=== PATIENT | male | born 1930 | race African-American/Black ===

== ENCOUNTER 2020-01-28 12:52 | Emergency (ER) | payer MEDICARE, OTHER ==
[~2020-01-28] VITALS: Ht 180.3 cm; Wt 112.0 kg
[~2020-01-28 12:52] MED LIST: GLYBURID-METFO1 EAC3 PO; Z VERAPAMIL HCL PO; Z.0.ENALAPRIL MALEA2 PO; Z.0.NORVASC5 MG PO; Z.0.SIMVASTATIN80 MG PO; Z.0.ULTRAM50 MG PO; [UNRECOGNIZED DRUG - OTHER] PO
--- OUTSIDE RECORDS SUMMARY | 2020-01-28 14:07 | XMS REPORT | Continuity of Care Document ---
Author Author [facility] t Organization [facility] Address 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 Depression, major, recurrent Depression, major, recurrent Disease Active 2016-05-27 00:00:00 [facility] Diabetes mellitus, type 2 Diabetes mellitus, type 2 Disease Ac tive 2015-03-10 00:00:00 Overview: Overview: ICD-10 C [facility] BP (high blood pressure) BP (high blood pressure) Disease Acti ve 2014-03-12 00:00:00 [facility] HLD (hyperlipidemia) HLD (hyperlipidemia) Disease Active 00:00:00 [facility] Allergies, Adverse Reactions, Alerts Allergy Name Allergy Type Status Severity Reaction(s) Onset Date Inacti ve Date Treating Clinician Comments Source Nsaids (Non-Steroidal Anti-Inflammatory Drug) Propensity to adverse reactions Active Swelling 2016-10-25 00:00:00 [facility] Social History Social Habit Start Date Stop Date Quantity Comments Source Sex Assigned At [facility] Smoking Status Start Date Stop Date Source [facility] Ordered Medication Name Filled Medication Name Start Date Stop Da te Current Medication? Ordering Clinician Indication Dosage Frequency Signature (SIG) Comments Components Source AZITHROmycin (ZITHROMAX) 250 MG tablet 2019-04-20 6 00:00:00 2019-05-19 23:59:00 No 250mg QD Take 1 tablet (250 mg total) by mouth daily for 5 days Take first 2 tablets together, then 1 every day until finished.. [facility] tamsulosin (FLOMAX) 0.4 mg Cp24 24 hr capsule 2016-10-28 00:00:0 0 Yes .8mg QD Take 2 capsules (0.8 mg total) by mouth nightly. [facility] HYDROcodone-acetaminophen (NORCO 5-325) 5-325 mg per tablet 2016-10-25 12:01:16 Yes 1{tbl} Take 1 tab let by mouth every 6 (six) hours as needed for Pain. [facility] FLUoxetine (PROZAC) 20 MG tablet 2016-10-25 12:01:16 Yes 20mg QD Take 20 mg by mouth daily. [facility] carvedilol (COREG) 25 MG tablet 2016-10-25 12:01:16 Yes 25mg Take 25 mg by mouth 2 (two) times daily with breakfast and dinner. [facility] gabapentin (NEURONTIN) 100 MG capsule 2016-10-25 12:01:16 Yes 200mg Q.5D Take 200 mg by mouth 2 (two) times daily. [facility] ondansetron (ZOFRAN-ODT) 4 MG disintegrating tablet 11-08 00:00:00 Yes 4mg Take 1 tablet (4 mg total) by mouth every 4 (four) hours as needed for Nausea. [facility] amLODIPine (NORVASC) 10 MG tablet 2014-11-01 07:45:35 Yes 10mg QD Take 10 mg by mouth daily. [facility] lisinopril (PRINIVIL,ZESTRIL) 10 MG tablet 2014-11-01 07:45:35 Yes 10mg QD Take 10 mg by mouth daily. [facility] pravastatin (PRAVACHOL) 40 MG tablet 2014-03-11 07:43:18 Ye s 40mg QD Take 40 mg by mouth daily. [facility] glipiZIDE-metFORMIN (METAGLIP) 5-500 mg per tablet 2014-02 07:43:17 Yes 1{tbl} Take 1 tablet by mouth 2 (two) times peter ly before meals. [facility] verapamil (CALAN-SR) 180 MG CR tablet 2014-03-11 07:43:17 Y es 180mg QD Take 180 mg by mouth nightly. [facility] Vital Signs Vital Name Observation Time Observation Value Comments Source Systolic blood pressure 2019-05-14 12:54:00 156 mm[Hg] [facility] Diastolic blood pressure 2019-05-14 12:54:00 88 mm[Hg] [facility] Heart rate 2019-05-14 12:54:00 59 /min [facility] Body temperature 2019-05-14 12:54:00 36.67 Noreen [facility] Respiratory rate 2019-05-14 12:54:00 20 /min [facility] Oxygen saturation in Arterial blood by Pulse oximetry 2018-06 12:54:00 100 [facility] height 2019-05-14 09:39:00 172.7 cm [facility] Body weight Measured 2019-05-14 09:39:00 108.863 kg [facility] BMI 2019-05-14 09:39:00 36.49 kg/m2 [facility] Procedures Procedure Date / Time Performed Performing Clinician Sour e REPORT OF PROCEDURE - ENDOSCOPY SCAN 2019-05-23 11:01:07 Pro vider, Default Scanning [facility] URINALYSIS W/ MICROSCOPIC 2019-05-14 13:04:00 Silvano Faustin [facility] ED ECG INTERPRETATION 2019-05-14 12:53:16 Silvano Faustin [facility] BASIC METABOLIC PANEL (7) 2019-05-14 11:22:00 Ramin Silvano Dain [facility] TROPONIN I 2019-05-14 11:22:00 Ramin Silvano K. [facility] CBC W/PLT COUNT & AUTO DIFFERENTIAL 2019-05-14 11:22:00 Josue Faustin Dain [facility] XR CHEST PA OR AP 1 VIEW IN DEPT. 2019-05-14 10:37:00 Catarino Faustin [facility] CT BRAIN WITHOUT IV CONTRAST 2019-05-14 10:19:00 [facility] ECG 12-LEAD 2019-05-14 09:45:03 Unknown, Hl7 Doctor [facility] Results Test Description Test Time Test Comments Results Result Comments Source ECG 12 lead 2019-05-15 11:07:50 Interface, E xternal Ris In - 05/15/2019 11:07 AM CSTVentricular Rate 44 BPMAtrial Rate 44 BPMP-R Interval 288 msQRS Duration 76 msQ-T Interval 450 msQTC Calculation(Bazett) 384 msP Dora 109 degreesR Dora - 13 degreesT Dora 16 degreesMarked sinus bradycardia with 1st degree A-V blockVoltage criteria for left ventricular hypertrophyBorderline criteria for Inferior infarct , age undeterminedAbnormal ECGWhen compared with ECG of 11-MAR-2014 08:04,No significant changesConfirmed by Rashawn BELL, LEODAN ([id number]) on 05/15/2019 11:07:47 AM [facility] Urinalysis w/Microscopic 2019-05-14 13:35:00 Test Item Color, UA (test code = 5778-6) Yellow Clarity, UA (test code = 5767-9) Hazy Specific [place], UA (test code = 5811-5) 1.022 1.001-1.035 pH, UA (test code = 5803-2) 5.5 5.0-8.0 Protein, UA (test code = 61273-8) 20 mg/dL Negative A Glucose, UA (test code = 365) Negative Negative Ketones, UA (test code = 2514-8) Negative Negative Bilirubin, UA (test code = 61795-9) Negative Negative Blood, UA (test code = 72669-8) Negative Negative Nitrite, UA (test code = 5802-4) Negative Negative Leukocytes, UA (test code = 5799-2) Negative Negative Urobilinogen, UA (test code = 03021-2) 2.0 mg/dL 0.2-1 H RBC, UA (test code = 09829-7) 1 /HPF WBC, UA (test code = 5821-4) 0 /HPF Mucus (test code = 8247-9) Rare Squam Epithel, UA (test code = 34013-1) 1 /HPF Casts (test code = 9842-6) 1 /LPF Crystals, Urine (test code = 48940-2) Rare Specimen Source (test code = 2795) Urine, Voided Lab Interpretation (test code = 11668-4) [facility] [id number] 13:35:00* Test Item Value Reference Range Interpretation Comments COLOR (BEAKER) (test code = 470) Yellow CLARITY (BEAKER) (test code = 469) Hazy SPECIFIC GRAVITY UA (BEAKER) (test code = 468) 1.022 1.001-1 .035 PH UA (BEAKER) (test code = 467) 5.5 5.0-8.0 PROTEIN UA (BEAKER) (test code = 464) 20 mg/dL Negative A GLUCOSE UA (BEAKER) (test code = 365) Negative Negative KETONES UA (BEAKER) (test code = 371) Negative Negative BILIRUBIN UA (BEAKER) (test code = 462) Negative Negative BLOOD UA (BEAKER) (test code = 461) Negative Negative NITRITE UA (BEAKER) (test code = 465) Negative Negative LEUKOCYTE ESTERASE UA (BEAKER) (test code = 466) Negative Negat amaya UROBILINOGEN UA (BEAKER) (test code = 463) 2.0 mg/dL 0.2-1.0 H RBC UA (BEAKER) (test code = 519) 1 /HPF WBC UA (BEAKER) (test code = 520) 0 /HPF MUCUS (BEAKER) (test code = 1574) Rare SQUAMOUS EPITHELIAL (BEAKER) (test code = 516) 1 /HPF CASTS (BEAKER) (test code = 1579) 1 /LPF CRYSTALS, URINE (BEAKER) (test code = 1521) Rare SOURCE(BEAKER) (test code = 2795) Urine, Voided ECG/EKG [id number] 12:53:16Silvano Faustin MD 05/16/2019 8:22 AMECG/EKG InterpretationDate/Time: 05/14/2019 1:12 PMPerformed by: Silvano Faustin MDAuthorized by: Silvano Faustin MD The ECG was interpreted by ED physician. The ECG is interpreted as sinus rhythm. Heart rate is 63 BPM.Patient tolerance: Patient tolerated the procedure well with no immediate complicationsComments: SINUS RHYTHM ON MONITOR [facility] Troponin [id number] 11:50:00* Test Item Value Reference Range Interpretation Comments Troponin I (test code = 53493-8) <0.01 0-0.03 ALEX (test code = ALEX) Troponin I (TnI) levels must be interpreted in the context of the presenting symptoms and the clinical findings. Elevated TnI levels indicate myocardial damage, but are not specific for ischemic heart disease. Elevated TnI levels are seen in patients with other cardiac conditions (including myocarditis and congestive heart failure), and slight TnI elevations occur in patients with other conditions, including sepsis, renal failure, acidosis, acute neurological disease, and persistent tachyarrhythmia. Lab Interpretation (test code = 63149-2) Normal [facility] [id number] 11:50:00* Test Item Value Reference Range Interpretation Comments TROPONIN I (BEAKER) (test code = 397) < ng/mL 0.00-0.03 Troponin I (TnI) levels must be interpreted in the context of the presenting sym ptoms and the clinical findings. Elevated TnI levels indicate myocardial damage, but are not specific for ischemic heart disease. Elevated TnI levels are seen i n patients with other cardiac conditions (including myocarditis and congestive h eart failure), and slight TnI elevations occur in patients with other conditions , including sepsis, renal failure, acidosis, acute neurological disease, and per sistent tachyarrhythmia.Basic Metabolic [id number] 11:47:00* Test Item Value Reference Range Interpretation Comments Sodium (test code = 2951-2) 139 meq/L 136-145 Potassium (test code = 2823-3) 4.1 meq/L 3.5-5.1 Specimen slightly hemolyzed Chloride (test code = 2075-0) 105 meq/L 98-107 CO2 (test code = 8-9) 26 meq/L 22-29 BUN (test code = 3094-0) 21 mg/dL 7-21 Creatinine (test code = 2160-0) 1.19 mg/dL 0.57-1.25 Specimen slightly hemolyzed Glucose (test code = 2345-7) 96 mg/dL 70-105 Calcium (test code = 76948-1) 9.4 mg/dL 8.4-10.2 EGFR (test code = 73560-1) 70 mL/min/1.73 sq m ESTIMATED GFR IS NOT ACCURATE CREATININE CLEARANCE IN PREDICTING GLOMERULAR FILTRATION RATE. ESTIMATED GFR IS NOT APPLICABLE FOR DIALYSIS PATIENTS. [facility] [id number] 11:47:00* Test Item Value Reference Range Interpretation Comments SODIUM (BEAKER) (test code = 381) 139 meq/L 136-145 POTASSIUM (BEAKER) (test code = 379) 4.1 meq/L 3.5-5.1 Specimen slightly hemolyzed CHLORIDE (BEAKER) (test code = 382) 105 meq/L 98-107 CO2 (BEAKER) (test code = 355) 26 meq/L 22-29 BLOOD UREA NITROGEN (BEAKER) (test code = 354) 21 mg/dL 7-21 CREATININE (BEAKER) (test code = 358) 1.19 mg/dL 0.57-1.25 Specimen slightly hemolyzed GLUCOSE RANDOM (BEAKER) (test code = 652) 96 mg/dL 70-105 CALCIUM (BEAKER) (test code = 697) 9.4 mg/dL 8.4-10.2 EGFR (BEAKER) (test code = 1092) 70 mL/min/1.73 sq m ESTIMATED GFR IS NOT ACCURATE CREATININE CLEARANCE IN PREDICTING GLOMERULAR FILTRATION RATE. ESTIMATED GFR IS NOT APPLICABLE FOR DIALYSIS PATIENTS. CBC with platelet count + automated [id number] 11:31:00* Test Item Value Reference Range Interpretation Comments WBC (test code = 6690-2) 7.0 3.5- 10.5 K/L RBC (test code = 789-8) 4.44 4.63- 6.08 M/L L MCHC (test code = 786-4) 32.6 32.3- 36.5 GM/DL L Hematocrit (test code = 4544-3) 40.8 % 40.1-51 MCV (test code = 787-2) 91.9 fL 79-92.2 MCH (test code = 785-6) 30.0 pg 25.7-32.2 RDW (test code = 788-0) 14.2 % 11.6-14.4 Platelets (test code = 777-3) 209 150- 450 K/CU MM MPV (test code = 55632-7) 9.1 fL 9.4-12.4 L nRBC (test code = 413) 0 0- 0 /100 WBC % Neutros (test code = 429) 51 % % Lymphs (test code = 430) 37 % % Monos (test code = 431) 9 % % Eos (test code = 432) 2 % % Baso (test code = 437) 1 % # Neutros (test code = 670) 3.57 1.78- 5.38 K/L # Lymphs (test code = 414) 2.61 1.32- 3.57 K/L # Monos (test code = 415) 0.64 0.30- 0.82 K/L # Eos (test code = 416) 0.15 0.04- 0.54 K/L # Baso (test code = 417) 0.04 0.01- 0.08 K/L Immature Granulocytes-Relative (test code = 2801) 0 % 0-1 Lab Interpretation (test code = 95384-5) Abnormal [facility] W/PLT COUNT & AUTO [id number] 11:31:00* Test Item Value Reference Range Interpretation Comments WHITE BLOOD CELL COUNT (BEAKER) (test code = 775) 7.0 K/ L 3.5- 10.5 RED BLOOD CELL COUNT (BEAKER) (test code = 761) 4.44 M/ L 4.63-6 .08 L HEMOGLOBIN (BEAKER) (test code = 410) 13.3 GM/DL 13.7-17.5 L HEMATOCRIT (BEAKER) (test code = 411) 40.8 % 40.1-51.0 MEAN CORPUSCULAR VOLUME (BEAKER) (test code = 753) 91.9 fL 79. 0-92.2 MEAN CORPUSCULAR HEMOGLOBIN (BEAKER) (test code = 751) 30.0 pg 25.7-32.2 MEAN CORPUSCULAR HEMOGLOBIN CONC (BEAKER) (test code = 752) 32.6 GM/DL 32.3-36.5 RED CELL DISTRIBUTION WIDTH (BEAKER) (test code = 412) 14.2 % 11.6-14.4 PLATELET COUNT (BEAKER) (test code = 756) 209 K/CU MM 150-450 MEAN PLATELET VOLUME (BEAKER) (test code = 754) 9.1 fL 9.4-12 .4 L NUCLEATED RED BLOOD CELLS (BEAKER) (test code = 413) 0 /100 WBC 0 -0 NEUTROPHILS RELATIVE PERCENT (BEAKER) (test code = 429) 51 % LYMPHOCYTES RELATIVE PERCENT (BEAKER) (test code = 430) 37 % MONOCYTES RELATIVE PERCENT (BEAKER) (test code = 431) 9 % EOSINOPHILS RELATIVE PERCENT (BEAKER) (test code = 432) 2 % BASOPHILS RELATIVE PERCENT (BEAKER) (test code = 437) 1 % NEUTROPHILS ABSOLUTE COUNT (BEAKER) (test code = 670) 3.57 K/ L 1.78-5.38 LYMPHOCYTES ABSOLUTE COUNT (BEAKER) (test code = 414) 2.61 K/ L 1.32-3.57 MONOCYTES ABSOLUTE COUNT (BEAKER) (test code = 415) 0.64 K/ L 0. 30-0.82 EOSINOPHILS ABSOLUTE COUNT (BEAKER) (test code = 416) 0.15 K/ L 0.04-0.54 BASOPHILS ABSOLUTE COUNT (BEAKER) (test code = 417) 0.04 K/ L 0. 01-0.08 IMMATURE GRANULOCYTES-RELATIVE PERCENT (BEAKER) (test code = 2801) 0 % 0-1 RAD, CHEST, PA OR AP, 1 [id number] 10:44:00Reason for exam:->DIZZINESSReason for exam:->GENERALIZED WEAKNESS, NOT ASSOCIATED WITH EXTREMITIESFINAL REPORT INDICATION: DIZZINESSGENERALIZED WEAKNESS, NOT ASSOCIATED WITH EXTREMITIES COMPARISON: March 11, 2014 TECHNIQUE: Single frontal view of the chest. FINDINGS: Lungs and pleura: Clear lungs. No effusion.Heart and mediastinum: Normal heart size. Unremarkable mediastinal contours.Osseous structures: No acute abnormality.Other: None. IMPRESSION: No acute intratho racic abnormality. Signed: Iris Hutchison Verified Date/Time: 019 10:44:06 Reading Location: [facility] Radiology Reading Room Electronica lly signed by: IRIS HUTCHISON MD on 05/14/2019 10:44 AM XR chest PA or AP 1 view in [id number] 10:44:00Interface, External Ris In - 05/14/2019 10:46 AM CSTFINAL REPORT INDICATION: DIZZINESSGENERALIZED WEAKNESS, NOT ASSOCIATED WITH EXTREMITIES COMPARISON: March 11, 2014 TECHNIQUE: Single frontal view of the chest. FINDINGS: Lungs and pleura: Clear lungs. No effusion.Heart and mediastinum: Normal heart size. Unremarkable mediastinal contours.Osseous structures: No acute abnormality.Other: None. IMPRESSION: No acute intrathoracic abnormality. Signed: Iris Hutchison Verified Date/Time: 05/14/2019 10:44:06 Reading Location: [facility] Radiology Reading Room [facility]AST 2019-05-14 10:32:00Reason for exam:->DIZZINESSReason for exam:->GENERALIZED WEAKNESS, NOT ASSOCIATED WITH EXTREMITIESWhat is the patient's sedation requirement?->No SedationFINAL REPORT CT Head without contrast CLINICAL HISTORY: DIZZINESSGENERALIZED WEAKNESS, NOT ASSOCIATED WITH EXTREMITIESWEAKNESS TECHNIQUE: Contiguous axial CT images through the head without contrast. This exam was performed according to the departmental dose optimization program which includes automated exposure control, adjustment of the mA and/or kV according to the patient size, and/or use of an iterative reconstruction technique. COMPARISON: 03/11/2014 FINDINGS: There is no CT evidence of acute infarct or intracranial hemorrhage. There is periventricular and subcortical white matter hypodensity which is nonspecific but compatible with chronic microvascular ischemic change. There are atherosclerotic calcifications of the intracranial circulation. There is generalized parenchymal volume loss without hydrocephalus, midline shift, or apparent mass effect. There are no extra-axial fluid collections. The skull is intact. There are air- fluid levels in the visualized maxillary sinuses. IMPRESSION: No CT evidence of acute infarct, hemorrhage, or hydrocephalus. Acute maxillary sinusitis. Signed: Kelvin Sandhu Verified Date/Time: 05/14/2019 10:32:43 Reading Location: [address] Neuro Reading Room brain without IV [id number] 10:32:00Interface, External Ris In - 05/14/2019 10:[address] Head without contrast CLINICAL HISTORY: DIZZINESSGENERALIZED WEAKNESS, NOT ASSOCIATED WITH EXTREMITIESWEAKNESS TECHNIQUE: Contiguous axial CT images through the head without contrast. This exam was performed according to the departmental dose optimization program which includes automated exposure control, adjustment of the mA and/or kV according to the patient size, and/or use of an iterative reconstruction technique. COMPARISON: 03/11/2014 FINDINGS: There is no CT evidence of acute infarct or intracranial hemorrhage. There is periventricular and subcortical white matter hypodensity which is nonspecific but compatible with chronic microvascular ischemic change. There are atherosclerotic calcifications of the intracranial circulation. There is generalized parenchymal volume loss without hydrocephalus, midline shift, or apparent mass effect. There are no extra-axial fluid collections. The skull is intact. There are air-fluid levels in the visualized maxillary sinuses. IMPRESSION: No CT evidence of acute infarct, hemorrhage, or hydrocephalus. Acute maxillary sinusitis. Signed: Kelvin Sandhu Verified Date/Time: 05/14/2019 10:32:43 Reading Location: [address] Neuro Reading Room [facility]BL[facility] [id number] 12:00:00* Test Item Value Reference Range Interpretation Comments CULTURE (BEAKER) (test code = 1095) No growth in 5 days BLOOD [id number] 10:57:00* Test Item Value Reference Range Interpretation Comments CULTURE (BEAKER) (test code = 1095) A From Aerobic Bottle Only Micrococcus species GRAM STAIN RESULT (BEAKER) (test code = 1123) From aer obic bottle only: gram positive cocci in clusters POCT-GLUCOSE [id number] 11:43:00* Test Item Value Reference Range Interpretation Comments POC-GLUCOSE METER (BEAKER) (test code = 1538) 205 mg/dL 70-110 H TESTED AT [facility] [address] [facility] [address] URINE [id number] 10:17:00* Test Item Value Reference Range Interpretation Comments CULTURE (BEAKER) (test code = 1095) ESCHERICHIA COLI A >100,000 col/mL Escherichia coli Amikacin (test code = 1) S Ampicillin + Sulbactam (test code = 6) R Aztreonam (test code = 32) S Cefepime (test code = 51) S Cefoxitin (test code = 68) S Ceftazidime (test code = 27) S Ceftriaxone (test code = 52) S Ertapenem (test code = 38) S Gentamicin (test code = 18) S Levofloxacin (test code = 22) S Meropenem (test code = 34) S Nitrofurantoin (test code = 23) S Piperacillin + Tazobactam (test code = 29) S Tetracycline (test code = 2) S Tobramycin (test code = 25) S Trimethoprim + Sulfamethoxazole (test code = 47) R CBC W/PLT COUNT & AUTO [id number] 06:07:00* Test Item Value Reference Range Interpretation Comments WHITE BLOOD CELL COUNT (BEAKER) (test code = 775) 7.3 K/ L 4.0- 10.0 RED BLOOD CELL COUNT (BEAKER) (test code = 761) 3.67 M/ L 4.20-5 .80 L HEMOGLOBIN (BEAKER) (test code = 410) 11.3 GM/DL 13.0-16.8 L HEMATOCRIT (BEAKER) (test code = 411) 33.2 % 40.0-50.0 L MEAN CORPUSCULAR VOLUME (BEAKER) (test code = 753) 90.3 fL 82. 0-98.0 MEAN CORPUSCULAR HEMOGLOBIN (BEAKER) (test code = 751) 30.8 pg 27.0-33.0 MEAN CORPUSCULAR HEMOGLOBIN CONC (BEAKER) (test code = 752) 34.2 GM/DL 32.0-36.0 RED CELL DISTRIBUTION WIDTH (BEAKER) (test code = 412) 13.1 % 10.3-14.2 PLATELET COUNT (BEAKER) (test code = 756) 243 K/CU MM 150-430 MEAN PLATELET VOLUME (BEAKER) (test code = 754) 6.3 fL 6.5-10 .5 L NUCLEATED RED BLOOD CELLS (BEAKER) (test code = 413) 0 /100 WBC 0 -0 NEUTROPHILS RELATIVE PERCENT (BEAKER) (test code = 429) 55 % LYMPHOCYTES RELATIVE PERCENT (BEAKER) (test code = 430) 34 % MONOCYTES RELATIVE PERCENT (BEAKER) (test code = 431) 10 % EOSINOPHILS RELATIVE PERCENT (BEAKER) (test code = 432) 1 % BASOPHILS RELATIVE PERCENT (BEAKER) (test code = 437) 0 % NEUTROPHILS ABSOLUTE COUNT (BEAKER) (test code = 670) 4.04 K/ L 1.80-8.00 LYMPHOCYTES ABSOLUTE COUNT (BEAKER) (test code = 414) 2.47 K/ L 1.48-4.50 MONOCYTES ABSOLUTE COUNT (BEAKER) (test code = 415) 0.73 K/ L 0. 00-1.30 EOSINOPHILS ABSOLUTE COUNT (BEAKER) (test code = 416) 0.05 K/ L 0.00-0.50 BASOPHILS ABSOLUTE COUNT (BEAKER) (test code = 417) 0.03 K/ L 0. 00-0.20 0.00POCT-GLUCOSE [id number] 22:05:00* Test Item Value Reference Range Interpretation Comments POC-GLUCOSE METER (BEAKER) (test code = 1538) 195 mg/dL 70-110 H TESTED AT [address] [address] POCT-GLUCOSE [id number] 17:12:00* Test Item Value Reference Range Interpretation Comments POC-GLUCOSE METER (BEAKER) (test code = 1538) 225 mg/dL 70-110 H TESTED AT [address] [address] POCT-GLUCOSE [id number] 14:34:00* Test Item Value Reference Range Interpretation Comments POC-GLUCOSE METER (BEAKER) (test code = 1538) 204 mg/dL 70-110 H TESTED AT [address] [address] POCT-GLUCOSE [id number] 10:55:00* Test Item Value Reference Range Interpretation Comments POC-GLUCOSE METER (BEAKER) (test code = 1538) 175 mg/dL 70-110 H TESTED AT [place] [id number] [facility] [address] POCT-GLUCOSE [id number] 07:50:00* Test Item Value Reference Range Interpretation Comments POC-GLUCOSE METER (BEAKER) (test code = 1538) 172 mg/dL 70-110 H TESTED AT [place] [id number] [facility] [address] CBC W/PLT COUNT & AUTO [id number] 07:44:00* Test Item Value Reference Range Interpretation Comments WHITE BLOOD CELL COUNT (BEAKER) (test code = 775) 10.1 K/ L 4.0- 10.0 H RED BLOOD CELL COUNT (BEAKER) (test code = 761) 3.88 M/ L 4.20-5 .80 L HEMOGLOBIN (BEAKER) (test code = 410) 11.8 GM/DL 13.0-16.8 L HEMATOCRIT (BEAKER) (test code = 411) 35.9 % 40.0-50.0 L MEAN CORPUSCULAR VOLUME (BEAKER) (test code = 753) 92.6 fL 82. 0-98.0 MEAN CORPUSCULAR HEMOGLOBIN (BEAKER) (test code = 751) 30.5 pg 27.0-33.0 MEAN CORPUSCULAR HEMOGLOBIN CONC (BEAKER) (test code = 752) 32.9 GM/DL 32.0-36.0 RED CELL DISTRIBUTION WIDTH (BEAKER) (test code = 412) 12.7 % 10.3-14.2 PLATELET COUNT (BEAKER) (test code = 756) 212 K/CU MM 150-430 MEAN PLATELET VOLUME (BEAKER) (test code = 754) 6.7 fL 6.5-10 .5 NUCLEATED RED BLOOD CELLS (BEAKER) (test code = 413) 0 /100 WBC 0 -0 NEUTROPHILS RELATIVE PERCENT (BEAKER) (test code = 429) 73 % LYMPHOCYTES RELATIVE PERCENT (BEAKER) (test code = 430) 18 % MONOCYTES RELATIVE PERCENT (BEAKER) (test code = 431) 9 % EOSINOPHILS RELATIVE PERCENT (BEAKER) (test code = 432) 0 % BASOPHILS RELATIVE PERCENT (BEAKER) (test code = 437) 0 % NEUTROPHILS ABSOLUTE COUNT (BEAKER) (test code = 670) 7.34 K/ L 1.80-8.00 LYMPHOCYTES ABSOLUTE COUNT (BEAKER) (test code = 414) 1.79 K/ L 1.48-4.50 MONOCYTES ABSOLUTE COUNT (BEAKER) (test code = 415) 0.95 K/ L 0. 00-1.30 EOSINOPHILS ABSOLUTE COUNT (BEAKER) (test code = 416) 0.01 K/ L 0.00-0.50 BASOPHILS ABSOLUTE COUNT (BEAKER) (test code = 417) 0.02 K/ L 0. 00-0.20 0.00BASIC METABOLIC [id number] 07:37:00* Test Item Value Reference Range Interpretation Comments SODIUM (BEAKER) (test code = 381) 135 meq/L 136-145 L POTASSIUM (BEAKER) (test code = 379) 3.7 meq/L 3.5-5.1 Specimen slightly hemolyzed CHLORIDE (BEAKER) (test code = 382) 105 meq/L 98-107 CO2 (BEAKER) (test code = 355) 21 meq/L 22-29 L BLOOD UREA NITROGEN (BEAKER) (test code = 354) 16 mg/dL 7-21 CREATININE (BEAKER) (test code = 358) 1.24 mg/dL 0.57-1.25 Specimen slightly hemolyzed GLUCOSE RANDOM (BEAKER) (test code = 652) 161 mg/dL 70-105 H CALCIUM (BEAKER) (test code = 697) 8.5 mg/dL 8.4-10.2 EGFR (BEAKER) (test code = 1092) 67 mL/min/1.73 sq m ESTIMATED GFR IS NOT ACCURATE CREATININE CLEARANCE IN PREDICTING GLOMERULAR FILTRATION RATE. ESTIMATED GFR IS NOT APPLICABLE FOR DIALYSIS PATIENTS. POCT-GLUCOSE [id number] 17:29:00* Test Item Value Reference Range Interpretation Comments POC-GLUCOSE METER (BEAKER) (test code = 1538) 206 mg/dL 70-110 H TESTED AT [facility] [address] [facility] [address] POCT-GLUCOSE [id number] 13:56:00* Test Item Value Reference Range Interpretation Comments POC-GLUCOSE METER (BEAKER) (test code = 1538) 232 mg/dL 70-110 H TESTED AT [facility] [address] [facility] [address] HEMOGLOBIN [id number] 09:02:00* Test Item Value Reference Range Interpretation Comments HEMOGLOBIN A1C (BEAKER) (test code = 368) 8.7 % 4.3-6.1 H POCT-GLUCOSE [id number] 08:24:00* Test Item Value Reference Range Interpretation Comments POC-GLUCOSE METER (BEAKER) (test code = 1538) 146 mg/dL 70-110 H TESTED AT [facility] [address] [facility] [address] [id number] 07:21:00* Test Item Value Reference Range Interpretation Comments PHOSPHORUS (BEAKER) (test code = 604) 3.1 mg/dL 2.3-4.7 [id number] 07:21:00* Test Item Value Reference Range Interpretation Comments MAGNESIUM (BEAKER) (test code = 627) 1.6 mg/dL 1.6-2.6 BASIC METABOLIC [id number] 07:21:00* Test Item Value Reference Range Interpretation Comments SODIUM (BEAKER) (test code = 381) 138 meq/L 136-145 POTASSIUM (BEAKER) (test code = 379) 3.5 meq/L 3.5-5.1 CHLORIDE (BEAKER) (test code = 382) 103 meq/L 98-107 CO2 (BEAKER) (test code = 355) 23 meq/L 22-29 BLOOD UREA NITROGEN (BEAKER) (test code = 354) 14 mg/dL 7-21 CREATININE (BEAKER) (test code = 358) 1.17 mg/dL 0.57-1.25 GLUCOSE RANDOM (BEAKER) (test code = 652) 150 mg/dL 70-105 H CALCIUM (BEAKER) (test code = 697) 8.8 mg/dL 8.4-10.2 EGFR (BEAKER) (test code = 1092) 72 mL/min/1.73 sq m ESTIMATED GFR IS NOT ACCURATE CREATININE CLEARANCE IN PREDICTING GLOMERULAR FILTRATION RATE. ESTIMATED GFR IS NOT APPLICABLE FOR DIALYSIS PATIENTS. LIPID [id number] 07:21:00* Test Item Value Reference Range Interpretation Comments TRIGLYCERIDES (BEAKER) (test code = 540) 72 mg/dL CHOLESTEROL (BEAKER) (test code = 631) 120 mg/dL HDL CHOLESTEROL (BEAKER) (test code = 976) 49 mg/dL LDL CHOLESTEROL CALCULATED (BEAKER) (test code = 633) 57 mg/dL Triglyceride Reference Range: Low Risk <150 Borderline 150-199 High Risk 200-499 Very High Risk >=500Cholesterol Reference Range: Low Risk <200 Borderline 200-239 High Risk >240HDL Cholesterol Reference Range: Low Risk >=60 High Risk <40LDL Cholesterol Reference Range: Optimal <100 Near Optimal 100-129 Borderline 130-159 High 160-189 Very High >=190 CBC W/PLT COUNT & AUTO [id number] 07:18:00* Test Item Value Reference Range Interpretation Comments WHITE BLOOD CELL COUNT (BEAKER) (test code = 775) 15.7 K/ L 4.0- 10.0 H RED BLOOD CELL COUNT (BEAKER) (test code = 761) 4.06 M/ L 4.20-5 .80 L HEMOGLOBIN (BEAKER) (test code = 410) 12.2 GM/DL 13.0-16.8 L HEMATOCRIT (BEAKER) (test code = 411) 36.4 % 40.0-50.0 L MEAN CORPUSCULAR VOLUME (BEAKER) (test code = 753) 89.6 fL 82. 0-98.0 MEAN CORPUSCULAR HEMOGLOBIN (BEAKER) (test code = 751) 29.9 pg 27.0-33.0 MEAN CORPUSCULAR HEMOGLOBIN CONC (BEAKER) (test code = 752) 33.4 GM/DL 32.0-36.0 RED CELL DISTRIBUTION WIDTH (BEAKER) (test code = 412) 13.4 % 10.3-14.2 PLATELET COUNT (BEAKER) (test code = 756) 232 K/CU MM 150-430 MEAN PLATELET VOLUME (BEAKER) (test code = 754) 6.5 fL 6.5-10 .5 NUCLEATED RED BLOOD CELLS (BEAKER) (test code = 413) 0 /100 WBC 0 -0 NEUTROPHILS RELATIVE PERCENT (BEAKER) (test code = 429) 78 % LYMPHOCYTES RELATIVE PERCENT (BEAKER) (test code = 430) 13 % MONOCYTES RELATIVE PERCENT (BEAKER) (test code = 431) 9 % EOSINOPHILS RELATIVE PERCENT (BEAKER) (test code = 432) 0 % BASOPHILS RELATIVE PERCENT (BEAKER) (test code = 437) 0 % NEUTROPHILS ABSOLUTE COUNT (BEAKER) (test code = 670) 12.20 K/ L 1.80-8.00 H LYMPHOCYTES ABSOLUTE COUNT (BEAKER) (test code = 414) 1.98 K/ L 1.48-4.50 MONOCYTES ABSOLUTE COUNT (BEAKER) (test code = 415) 1.42 K/ L 0. 00-1.30 H EOSINOPHILS ABSOLUTE COUNT (BEAKER) (test code = 416) 0.01 K/ L 0.00-0.50 BASOPHILS ABSOLUTE COUNT (BEAKER) (test code = 417) 0.01 K/ L 0. 00-0.20 [id number] 06:38:00* Test Item Value Reference Range Interpretation Comments PROTIME (BEAKER) (test code = 759) 16.3 seconds 11.7-14.7 H INR (BEAKER) (test code = 370) 1.3 <=5.9 PARTIAL THROMBOPLASTIN TIME (BEAKER) (test code = 760) 37.4 seconds 22.5-36.0 H RECOMMENDED COUMADIN/WARFARIN INR THERAPY RANGESSTANDARD DOSE: 2.0 - 3.0 Inclu sima: PROPHYLAXIS for venous thrombosis, systemic embolization; TREATMENT for reed ous thrombosis and/or pulmonary embolus.HIGH RISK: Target INR is 2.5-3.5 for pat ients with mechanical heart valves.URINALYSIS W/ [id number] 22:31:00 * Test Item Value Reference Range Interpretation Comments COLOR (BEAKER) (test code = 470) Yellow CLARITY (BEAKER) (test code = 469) Hazy SPECIFIC GRAVITY UA (BEAKER) (test code = 468) 1.023 1.001-1 .035 PH UA (BEAKER) (test code = 467) 5.5 5.0-8.0 PROTEIN UA (BEAKER) (test code = 464) 50 mg/dL Negative A GLUCOSE UA (BEAKER) (test code = 365) Negative Negative KETONES UA (BEAKER) (test code = 371) 10 mg/dL Negative A BILIRUBIN UA (BEAKER) (test code = 462) Negative Negative BLOOD UA (BEAKER) (test code = 461) Small Negative A NITRITE UA (BEAKER) (test code = 465) Positive Negative A LEUKOCYTE ESTERASE UA (BEAKER) (test code = 466) Large Negat amaya A UROBILINOGEN UA (BEAKER) (test code = 463) 0.2 mg/dL 0.2-1.0 RBC UA (BEAKER) (test code = 519) 2 /HPF WBC UA (BEAKER) (test code = 520) 87 /HPF BACTERIA (BEAKER) (test code = 517) Rare MUCUS (BEAKER) (test code = 1574) Rare SOURCE(BEAKER) (test code = 2795) Urine, Voided [id number] 16:00:00* Test Item Value Reference Range Interpretation Comments LIPASE (BEAKER) (test code = 749) 15 U/L 8-78 HEPATIC FUNCTION [id number] 16:00:00* Test Item Value Reference Range Interpretation Comments TOTAL PROTEIN (BEAKER) (test code = 770) 8.2 gm/dL 6.0-8.3 ALBUMIN (BEAKER) (test code = 1145) 3.9 g/dL 3.5-5.0 BILIRUBIN TOTAL (BEAKER) (test code = 377) 0.7 mg/dL 0.2-1.2 BILIRUBIN DIRECT (BEAKER) (test code = 706) 0.3 mg/dL 0.1-0.5 ALKALINE PHOSPHATASE (BEAKER) (test code = 346) 72 U/L 40-150 AST (SGOT) (BEAKER) (test code = 353) 13 U/L 5-34 ALT (SGPT) (BEAKER) (test code = 347) 7 U/L 6-55 [id number] 16:00:00* Test Item Value Reference Range Interpretation Comments AMYLASE (BEAKER) (test code = 349) 48 U/L 25-125 BASIC METABOLIC [id number] 14:04:00* Test Item Value Reference Range Interpretation Comments SODIUM (BEAKER) (test code = 381) 136 meq/L 136-145 POTASSIUM (BEAKER) (test code = 379) 3.6 meq/L 3.5-5.1 CHLORIDE (BEAKER) (test code = 382) 102 meq/L 98-107 CO2 (BEAKER) (test code = 355) 23 meq/L 22-29 BLOOD UREA NITROGEN (BEAKER) (test code = 354) 11 mg/dL 7-21 CREATININE (BEAKER) (test code = 358) 1.13 mg/dL 0.57-1.25 GLUCOSE RANDOM (BEAKER) (test code = 652) 171 mg/dL 70-105 H CALCIUM (BEAKER) (test code = 697) 9.4 mg/dL 8.4-10.2 EGFR (BEAKER) (test code = 1092) 75 mL/min/1.73 sq m ESTIMATED GFR IS NOT ACCURATE CREATININE CLEARANCE IN PREDICTING GLOMERULAR FILTRATION RATE. ESTIMATED GFR IS NOT APPLICABLE FOR DIALYSIS PATIENTS. CBC W/PLT COUNT & AUTO [id number] 13:55:00* Test Item Value Reference Range Interpretation Comments WHITE BLOOD CELL COUNT (BEAKER) (test code = 775) 15.1 K/ L 4.0- 10.0 H RED BLOOD CELL COUNT (BEAKER) (test code = 761) 4.41 M/ L 4.20-5 .80 HEMOGLOBIN (BEAKER) (test code = 410) 13.2 GM/DL 13.0-16.8 HEMATOCRIT (BEAKER) (test code = 411) 39.9 % 40.0-50.0 L MEAN CORPUSCULAR VOLUME (BEAKER) (test code = 753) 90.5 fL 82. 0-98.0 MEAN CORPUSCULAR HEMOGLOBIN (BEAKER) (test code = 751) 29.9 pg 27.0-33.0 MEAN CORPUSCULAR HEMOGLOBIN CONC (BEAKER) (test code = 752) 33.0 GM/DL 32.0-36.0 RED CELL DISTRIBUTION WIDTH (BEAKER) (test code = 412) 13.9 % 10.3-14.2 PLATELET COUNT (BEAKER) (test code = 756) 242 K/CU MM 150-430 MEAN PLATELET VOLUME (BEAKER) (test code = 754) 6.2 fL 6.5-10 .5 L NUCLEATED RED BLOOD CELLS (BEAKER) (test code = 413) 0 /100 WBC 0 -0 NEUTROPHILS RELATIVE PERCENT (BEAKER) (test code = 429) 79 % LYMPHOCYTES RELATIVE PERCENT (BEAKER) (test code = 430) 12 % MONOCYTES RELATIVE PERCENT (BEAKER) (test code = 431) 8 % EOSINOPHILS RELATIVE PERCENT (BEAKER) (test code = 432) 0 % BASOPHILS RELATIVE PERCENT (BEAKER) (test code = 437) 1 % NEUTROPHILS ABSOLUTE COUNT (BEAKER) (test code = 670) 11.90 K/ L 1.80-8.00 H LYMPHOCYTES ABSOLUTE COUNT (BEAKER) (test code = 414) 1.82 K/ L 1.48-4.50 MONOCYTES ABSOLUTE COUNT (BEAKER) (test code = 415) 1.21 K/ L 0. 00-1.30 EOSINOPHILS ABSOLUTE COUNT (BEAKER) (test code = 416) 0.01 K/ L 0.00-0.50 BASOPHILS ABSOLUTE COUNT (BEAKER) (test code = 417) 0.18 K/ L 0. 00-0.20 0.00
--- OUTSIDE RECORDS SUMMARY | 2020-01-28 14:07 | XMS REPORT | Clinical Summary ---
Author Author [employer] [facility] [employer] [facility] Address Unknown Phone Unavailable Care Team Providers Care Property And Equipment Clerk Name Role Phone Delfino Tapia PCP Unavailable Allergies Comments Active Allergy Reactions Severity Noted Date Nsaids (Non-Steroidal Swelling 10/25/2016 Anti-Inflammatory Drug) Medications End Date Status Medication Sig Dispensed Refills Start Date Active glipiZIDE-metFORMIN Take 1 tablet 0 (METAGLIP) 5-500 mg per by mouth 2 tablet (two) times daily before meals. Active verapamil (CALAN-SR) 180 Take 180 mg 0 MG CR tablet by mouth nightly. Active pravastatin (PRAVACHOL) Take 40 mg by 0 40 MG tablet mouth daily. Active amLODIPine (NORVASC) 10 Take 10 mg by 0 MG tablet mouth daily. Active lisinopril Take 10 mg by 0 (PRINIVIL,ZESTRIL) 10 MG mouth daily. tablet Active ondansetron (ZOFRAN-ODT) Take 1 tablet 20 tablet 0 4 MG disintegrating (4 mg total) 5 tablet by mouth every 4 (four) hours as needed for Nausea. Active HYDROcodone-acetaminophen Take 1 tablet 0 (NORCO 5-325) 5-325 mg by mouth per tablet every 6 (six) hours as needed for Pain. Active FLUoxetine (PROZAC) 20 MG Take 20 mg by 0 tablet mouth daily. Active carvedilol (COREG) 25 MG Take 25 mg by 0 tablet mouth 2 (two) times daily with breakfast and dinner. Active gabapentin (NEURONTIN) Take 200 mg 0 100 MG capsule by mouth 2 (two) times daily. Active tamsulosin (FLOMAX) 0.4 Take 2 60 capsule 1 mg Cp24 24 hr capsule capsules (0.8 7 mg total) by mouth nightly. 05/19/2019 AZITHROmycin (ZITHROMAX) Take 1 tablet 6 tablet 0 250 MG tablet (250 mg 9 total) by mouth daily for 5 days Take first 2 tablets together, then 1 every day until finished.. Active Problems Problem Noted Date Acute pyelonephritis 10/25/2016 Depression, major, recurrent 05/27/2016 Diabetes mellitus, type 2 03/10/2015 Overview: Overview: ICD-10 BP (high blood pressure) 03/12/2014 HLD (hyperlipidemia) 03/12/2014 Encounters Care Team Description Date Type Specialty Silvano Faustin MD Dizziness (Primary Dx); Essential hypertension; Weakness; Acute non-recurrent sinusitis, unspecified location; Hypertension, uncontrolled 05/14/2019 Emergency Emergency Medicine 05/14/2019 Orders Only General Internal Me dicine after 01/27/2019 Social History Date Tobacco Use Types Packs/Day Years Used Never Smoker Alcohol Use Drinks/Week oz/Week Comments No Sex Assigned at Date Recorded Not on file Industry Job Start Date Occupation Not on file Not on file Not on file Travel End Travel History Travel Start No recent travel history available. Last Filed Vital Signs Time Taken Vital Sign Reading 05/14/2019 12:54 PM MUSEUM [facility]RARIAN Blood Pressure 156/88 05/14/2019 12:54 PM MUSEUM LIBRARIAN Pulse 59 05/14/2019 12:54 PM [employer]USEUM [employer]RARIAN Temperature 36.7 C (98 F) 05/14/2019 12:54 PM MUSEUM [employer]RARIAN Respiratory Rate 20 05/14/2019 12:54 PM MUSEUM [employer]RARIAN Oxygen Saturation 100% - Inhaled Oxygen - Concentration 05/14/2019 9:39 AM MUSEUM LIBRARIAN Weight 108.9 kg (240 lb) 05/14/2019 9:39 AM MUSEUM LIBRARIAN Height 172.7 cm (5' 8") 05/14/2019 9:39 AM MUSEUM [employer]RARIAN Body Mass Index 36.49 Plan of Treatment Not on file Procedures Comments Procedure Name Priority Date/Time Associated Diag nosis REPORT OF PROCEDURE - 05/23/2019 ENDOSCOPY SCAN 11:01 AM MUSEUM [facility]RARIAN URINALYSIS W/ MICROSCOPIC STAT 05/14/2019 1:04 PM MUSEUM LIBRARIAN ED ECG INTERPRETATION Routine 05/14/2019 12:53 PM MUSEUM LIBRARIAN CBC W/PLT COUNT & AUTO STAT 05/14/2019 DIFFERENTIAL 11:22 AM MUSEUM LIBRARIAN TROPONIN I STAT 05/14/2019 11:22 AM MUSEUM LIBRARIAN CBC W/PLT COUNT & AUTO STAT 05/14/2019 DIFFERENTIAL 11:22 AM MUSEUM LIBRARIAN BASIC METABOLIC PANEL (7) STAT 05/14/2019 11:22 AM MUSEUM LIBRARIAN XR CHEST PA OR AP 1 VIEW STAT 05/14/2019 IN DEPT. 10:[address] BRAIN WITHOUT IV STAT 05/14/2019 CONTRAST 10:19 AM MUSEUM LIBRARIAN ECG 12-LEAD Routine 05/14/2019 9:45 AM MUSEUM LIBRARIAN Procedure Note - Interface, External Ris In - 05/14/2019 11:00 AM MUSEUM LIBRARIAN Ventricula r Rate 44 BPM Atrial Rate 44 BPM P-R Interval 288 ms QRS Duration 76 ms Q-T Interval 450 ms QTC Calculatio n(Bazett) 384 ms P [place] 109 degrees R [place] -13 degrees T [place] 16 degrees Marked sinus bradycardi a with 1st degree A-V block Voltage criteria for left ventricula r hypertroph y Abnormal ECG When compared with ECG of 4 08:04, Criteria for Inferior infarct are no longer Present ECG 12-LEAD STAT 05/14/2019 9:45 AM MUSEUM LIBRARIAN after 01/27/2019 Results * EKG-SCANNED (05/23/2019 11:01 AM MUSEUM LIBRARIAN) Narrative Performed At This result has an attachment that is n ot available. * Urinalysis w/Microscopic (05/14/2019 1:04 PM MUSEUM LIBRARIAN) Color, UA Yellow [facility] Clarity, UA Hazy [facility] Specific Gunter, UA 1.022 1.001 - 1.035 [facility] pH, UA 5.5 5.0 - 8.0 [facility] Protein, UA 20 mg/dL (A) Negative [facility] Glucose, UA Negative Negative [facility] Ketones, UA Negative Negative [facility] Bilirubin, UA Negative Negative [facility] Blood, UA Negative Negative [facility] Nitrite, UA Negative Negative [facility] Leukocytes, UA Negative Negative [facility] Urobilinogen, UA 2.0 (H) 0.2 - 1.0 mg/dL [facility] RBC, UA 1 /HPF [facility] WBC, UA 0 /HPF [facility] Mucus Rare [facility] Squam Epithel, UA 1 /HPF [facility] Casts 1 /LPF [facility] Crystals, Urine Rare [facility] Specimen Source Urine, Voided [facility] Specimen Urine Performing Organization Address City/State/Zipcode Ph one Number [place] [address] [facility] * ECG/EKG Interpretation (05/14/2019 12:53 PM MUSEUM LIBRARIAN) Narrative Performed At Silvano Faustin MD 98:22 AM ECG/EKG Interpretation Date/Time: 05/14/2019 1:12 PM Performed by: Silvano Faustin MD Authorized by: Silvano Faustin MD The ECG was interpreted by ED physician . The ECG is interpreted as sinus rhythm. Heart rate is 63 BPM. Patient tolerance: Patient tolerated th e procedure well with no immediate complications Comments: SINUS RHYTHM ON MONITOR * CBC with platelet count + automated diff (05/14/2019 11:22 AM MUSEUM LIBRARIAN) WBC 7.0 3.5 - 10.5 K/L [facility] RBC 4.44 (L) 4.63 - 6.08 M/L [facility] Hemoglobin 13.3 (L) 13.7 - 17.5 GM/DL [facility] Hematocrit 40.8 40.1 - 51.0 % [facility] MCV 91.9 79.0 - 92.2 fL [facility] MCH 30.0 25.7 - 32.2 pg [facility] MCHC 32.6 32.3 - 36.5 GM/DL [facility] RDW 14.2 11.6 - 14.4 % [facility] Platelets 209 150 - 450 K/CU MM [facility] MPV 9.1 (L) 9.4 - 12.4 fL [facility] nRBC 0 0 - 0 /100 WBC [facility] % Neutros 51 % [facility] % Lymphs 37 % [facility] % Monos 9 % [facility] % Eos 2 % [facility] % Baso 1 % [facility] # Neutros 3.57 1.78 - 5.38 K/L [facility] # Lymphs 2.61 1.32 - 3.57 K/L [facility] # Monos 0.64 0.30 - 0.82 K/L [facility] # Eos 0.15 0.04 - 0.54 K/L [facility] # Baso 0.04 0.01 - 0.08 K/L [facility] Immature 0 0 - 1 % Granulocytes-Relative [facility] Specimen Blood Performing Organization Address City/State/Zipcode Ph one Number [place] [phone] [place], [place] [address] [facility] * Troponin I (05/14/2019 11:22 AM MUSEUM LIBRARIAN) Troponin I <0.01 0.00 - 0.03 ng/mL [facility] Specimen Blood Narrative Performed At Troponin I (TnI) levels must be interpreted in the co ntext of the presenting [facility] symptoms and the clinical findings. Elevated TnI leve ls indicate myocardial [facility] damage, but are not specific for ischem ic heart disease. Elevated TnI levels are seen in patients with other cardiac con ditions (including myocarditis and congestive heart failure), and slight T nI elevations occur in patients with other conditions, including sepsis, dolores al failure, acidosis, acute neurological disease, and persistent tachyarrhythmia . Performing Organization Address City/State/[facility] Ph one Number [address] [facility] * Basic Metabolic Panel (05/14/2019 11:22 AM MUSEUM LIBRARIAN) Sodium 139 136 - 145 meq/L [facility] Potassium 4.1Comment: Specimen slightly 3.5 - 5.1 meq/L [facility] Chloride 105 98 - 107 meq/L [facility] CO2 26 22 - 29 meq/L [facility] BUN 21 7 - 21 mg/dL [facility] Creatinine 1.19Comment: Specimen slightly 0.57 - 1.25 mg/ dL [facility] Glucose 96 70 - 105 mg/dL [facility] Calcium 9.4 8.4 - 10.2 mg/dL [facility] EGFR 70Comment: ESTIMATED GFR IS mL/min/1.[address] [facility] NOT ACCURATE CREATININE [facility] CLEARANCE IN PREDICTING GLOMERULAR FILTRATION RATE. ESTIMATED GFR IS NOT APPLICABLE FOR DIALYSIS PATIENTS. Specimen Blood Performing Organization Address City/State/Zipcode Ph one Number [facility] [address] [place] [address] [facility] * XR chest PA or AP 1 view in dept (05/14/2019 10:37 AM MUSEUM LIBRARIAN) Specimen Narrative Performed At FINAL REPORT [facility] INDICATION: DIZZINESS GENERALIZED WEAKNESS, NOT ASSOCIATED WI TH EXTREMITIES COMPARISON: March 11, 2014 TECHNIQUE: Single frontal view of the c hest. FINDINGS: Lungs and pleura: Clear lungs. No effus ion. Heart and mediastinum: Normal heart siz e. Unremarkable mediastinal contours. Osseous structures: No acute abnormalit y. Other: None. IMPRESSION: No acute intrathoracic abnormality. Signed: Payal Hutchison MD Report Verified Date/Time: 10:44:06 Reading Location: [facility] Reading Room Procedure Note Interface, External Ris In - 05/14/2019 10:46 AM MUSEUM LIBRARIAN FINAL REPORT INDICATION: DIZZINESS GENERALIZED WEAKNESS, NOT ASSOCIATED WITH EXTREMITIES COMPARISON: March 11, 2014 TECHNIQUE: Single frontal view of the chest. FINDINGS: Lungs and pleura: Clear lungs. No effusion. Heart and mediastinum: Normal heart size. Unremarkable mediastinal contours. Osseous structures: No acute abnormality. Other: None. IMPRESSION: No acute intrathoracic abnormality. Signed: Payal Hutchison MD Report Verified Date/Time: 05/14/2019 10:44:06 [facility] Reading Room Performing Organization Address City/[facility] Ph one Number [facility] * CT brain without IV contrast (05/14/2019 10:19 AM MUSEUM LIBRARIAN) Specimen Narrative Performed At FINAL REPORT [facility] CT Head without contrast CLINICAL HISTORY: DIZZINESS GENERALIZED WEAKNESS, NOT ASSOCIATED WI TH EXTREMITIES WEAKNESS TECHNIQUE: Contiguous axial CT images t hrough the head without contrast. This exam was performed accor ding to the departmental dose optimization program which includes aut omated exposure control, adjustment of the mA and/or kV accordin g to the patient size, and/or use of an iterative reconstruction tech nique. COMPARISON: 03/11/2014 FINDINGS: There is no CT evidence of acute infarc t or intracranial hemorrhage. There is periventricular and subcortica l white matter hypodensity which is nonspecific but compatible wit h chronic microvascular ischemic change. There are atherosclero tic calcifications of the intracranial circulation. There is gene ralized parenchymal volume loss without hydrocephalus, midline saul ft, or apparent mass effect. There are no extra-axial fluid collecti ons. The skull is intact. There are air-fluid levels in the visua lized maxillary sinuses. IMPRESSION: No CT evidence of acute infarct, hemorr roscoe, or hydrocephalus. Acute maxillary sinusitis. Signed: Kelvin Sandhu MD Report Verified Date/Time: 9 10:32:43 Reading Location: [address] Neuro Re ading Room Procedure Note Interface, External Ris In - 05/14/2019 10:34 AM MUSEUM LIBRARIAN FINAL REPORT CT Head without contrast CLINICAL HISTORY: DIZZINESS GENERALIZED WEAKNESS, NOT ASSOCIATED WITH EXTREMITIES WEAKNESS TECHNIQUE: Contiguous axial CT images through the [...] hydrocephalus. Acute maxillary sinusitis. Signed: Kelvin Sandhu MD Report Verified Date/Time: 05/14/2019 10:32:43 Reading Location: [address] Neuro Reading Room Performing Organization Address City/State/Zipcode Ph one Number [facility] * ECG 12 lead (05/14/2019 9:45 AM MUSEUM LIBRARIAN) Specimen Narrative Performed At Ventricular Rate 44 BPM [facility] Atrial Rate 44 BPM P-R Interval 288 ms QRS Duration 76 ms Q-T Interval 450 ms QTC Calculation(Bazett) 384 ms P [place] 109 degrees R [place] -13 degrees T [place] 16 degrees Marked sinus bradycardia with 1st degre e A-V block Voltage criteria for left ventricular h ypertrophy Borderline criteria for Inferior infarc t , age undetermined Abnormal ECG When compared with ECG of 11-MAR-2014 0 8:04, No significant changes Confirmed by Rashawn BELL BASANT ([id number]) on 05/15/2019 11:07:47 AM Procedure Note Interface, External Ris In - 05/15/2019 11:07 AM MUSEUM LIBRARIAN Ventricular Rate 44 BPM Atrial Rate 44 BPM P-R Interval 288 ms QRS Duration 76 ms Q-T Interval 450 ms QTC Calculation(Bazett) 384 ms P [place] 109 degrees R [place] -13 degrees T [place] 16 degrees Marked sinus bradycardia with 1st degree A-V block Voltage criteria for left ventricular hypertrophy Borderline criteria for Inferior infarct , age undetermined Abnormal ECG When compared with ECG of 11-MAR-2014 08:04, No significant changes Confirmed by Rashawn BELL, LEODAN ([id number]) on 05/15/2019 11:07:47 AM Performing Organization Address City/State/Zipcode Ph one Number [facility] after 01/27/2019 Insurance Payer Benefit Subscriber ID Type Phone Address Plan / Group [employer] TEX[employer] xxxxxxxxx [facility] Cont[facility] [id number] Advance Directives For more information, please contact: [facility] [address] [place] [address] Date Inactivated Comments Code Status Date Activated 10/28/2016 4:29 PM Full Code 10/26/2016 5:44 AM This code status was determined by: Patient
--- NOTE | 2020-01-28 14:08 | Emergency Department Note ---
History of Present Illnes History of Present Illness Chief Complaint: Genitourinary History of Present Illness This is a 89 year old male Chief Complaint Comment buring with urination onset yesterday. no fever. aaox4. ambulatory . 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 Any updates have been documented here. Past Medical History Recent Fever: No Clinical Suspicion of Infectio: No New/Unexplained Change in Ment: No Past Medical History: Diabetes, Hyperlipedemia Other Medical History: HYPERCHOLESTEREMIA, AND "EYE PROBLEMS" Social History Smoking Cessation: Unknown if ever smoked Counseling Performed: No Alcohol Use: None Any Illegal Drug Use: No Other Last Tetanus: UNKNOWN Any Pre-Existing Lines (PICC,: No Review of Systems Review of Systems Constitutional: Reports no symptoms EENTM: Reports no symptoms Cardiovascular: Reports no symptoms Respiratory: Reports no symptoms Gastrointestinal: Reports no symptoms Genitourinary: Reports dysuria Musculoskeletal: Reports no symptoms Integumentary: Reports no symptoms Neurological: Reports no symptoms Psychological: Reports no symptoms Endocrine: Reports no symptoms Hematological/Lymphatic: Reports no symptoms Review of other systems: All other systems negative Physical Exam Related Data Allergies: Coded Allergies: No Known Allergies (Unverified , 10/27/10) Triage Vital Signs Vital Signs Date Time Temp Pulse Resp B/P (MAP) Pulse Ox O2 Delivery O2 Flow Rate FiO2 01/28/20 13:17 98.8 78 16 116/65 98 Room Air Vital signs reviewed: Yes Physical Exam CONSTITUTIONAL Constitutional: Present well-developed, Present well-nourished HENT HENT: Present normocephalic, Present atraumatic, Present oropharynx clear/moist, Present nose normal HENT L/R: Present left ext ear normal, Present right ext ear normal EYES Eyes: Reports PERRL, Reports conjunctivae normal NECK Neck: Present ROM normal PULMONARY Pulmonary: Present effort normal, Present breath sounds normal CARDIOVASCULAR Cardiovascular: Present regular rhythm, Present heart sounds normal, Present capillary refill normal, Present normal rate GASTROINTESTINAL Abdominal: Present soft, Present nontender, Present bowel sounds normal GENITOURINARY Genitourinary: Present exam deferred SKIN Skin: Present warm, Present dry MUSCULOSKELETAL Musculoskeletal: Present ROM normal NEUROLOGICAL Neurological: Present alert, Present oriented x 3, Present no gross motor or sensory deficits PSYCHOLOGICAL Psychological: Present mood/affect normal, Present judgement normal Assessment & Plan Medical Decision Making MDM 89-year-old male presenting for burning with urination. Exam shows an overall well-appearing patient in no acute distress, vital signs stable, within acceptable limits. W/u shows UTI. he was given 1g Rocephin in the ED with will rx keflex. Doubt emergent process at this time. I discussed results patient as well as expected disease time course and management. They will follow up with their primary care provider or return to the emergency department for new or worsening symptoms. Patient's appropriate for discharge. Reassessment Reassessment time: 14:09 Reassessment Well appearing, NAD Assessment & Plan Final Impression: (1) UTI (urinary tract infection) Depart Disposition: HOME, SELF-CARE Last Vital Signs Date Time Temp Pulse Resp B/P (MAP) Pulse Ox O2 Delivery O2 Flow Rate FiO2 01/28/20 13:17 98.8 78 16 116/65 98 Room Air Home Meds Active Scripts Cephalexin Monohydrate (KEFLEX) 500 Mg Capsule, 500 MG PO TID for uti for 7 Days, #21 TAB 0 Refills Prov:SUE AYALA MD 01/28/20 Reported Medications Amlodipine Besylate (Norvasc) 5 Mg Tablet, 5 MG PO DAILY 10/27/10 Enalapril Maleate (Enalapril Maleate) 20 Mg Tablet, 20 MG PO DAILY 10/27/10 Verapamil Hcl (Verapamil Hcl) 180 Mg Cap24h.pel, 180 MG PO BID 10/27/10 Simvastatin (Simvastatin) 80 Mg Tablet, 80 MG PO QHS 10/27/10 Glyburide, Micro/Metformin Hcl (Glyburid-Metformin 5-500 Mg Tb) 1 Each Tablet, 1 EACH PO BID 10/27/10 Tramadol Hcl (Ultram) 50 Mg Tablet, 50 MG PO PRN 10/27/10 Tizanidine Hcl (Zanaflex) 2 Mg Capsule, 2 MG PO TID 10/27/10 SUE AYALA MD Jan 28, 2020 14:08
--- NOTE | 2020-01-28 14:15 | NUR ---
PATIENT TO ROOM 2
[2020-01-28 14:17] LABS: BASOPHILS % 0.2 % (0.0-1.0); EOSINOPHILS # (AUTO) 0.1 (0.0-0.4); EOSINOPHILS % 0.4 % (0.0-6.0); HEMATOCRIT 37.2 % (38.2-49.6); HEMOGLOBIN 11.9 g/dL (14.0-18.0); LYMPHOCYTES # (AUTO) 2.4 (1.0-3.2); MEAN CORPUSCULAR VOLUME 90.5 fL (81-99); MONOCYTES # (AUTO) 1.3 (0.2-0.8); NEUTROPHILS # (AUTO) 10.2 (2.1-6.9); PLATELET COUNT 172 x10e3/uL (140-360); RED BLOOD COUNT 4.11 x10e6/uL (4.3-5.7); RED CELL DISTRIBUTION WIDTH 14.5 % (11.7-14.4)
[2020-01-28 14:22] LABS: CLARITY,URINE CLOUDY (CLEAR); COLOR,URINE AMBER (YELLOW); LEUKOCYTE ESTERASE ,URINE SMALL (NEGATIVE); NITRITE,URINE NEGATIVE (NEGATIVE); PROTEIN,URINE DIPSTICK >=300 (NEGATIVE)
[2020-01-28 14:23] LABS: BILIRUBIN,URINE MODERATE (NEGATIVE); KETONES,URINE TRACE (NEGATIVE); URINE UROBILINOGEN 1 mg/dL (0.2 - 1)
[2020-01-28 14:36] LABS: BACTERIA,URINE MANY /HPF; EPITHELIAL CELLS,URINE RARE /LPF
[2020-01-28 14:38] LABS: ALBUMIN 3.4 g/dL (3.5-5.0); ALBUMIN/GLOBULIN RATIO 0.9 (0.8-2.0); ANION GAP 13.7 mmol/L (8-16); CALCIUM 9.1 mg/dL (8.4-10.2); CREATININE, SERUM 1.67 mg/dL (0.72-1.25); POTASSIUM 3.7 mmol/L (3.5-5.1)
[2020-01-28] MEDS ORDERED: KEFLEX500 MG PO (15:23)
[2020-01-28] MEDS ORDERED: CEFTRIAXONE SOD 1 GM/NS 50 ML 50 ML IV ONE (15:30)
== END 2020-01-28 16:06 | disposition home or self-care (01) ==
LOC: ER 14:05
DX: N39.0 Urinary tract infection, site not specified (principal); R30.0 Dysuria; E11.9 Type 2 diabetes mellitus without complications; E78.5 Hyperlipidemia, unspecified
CPT/HCPCS: 36415; 80053; 81001; 85025; 87086; 87186; 99284; J0696

== ENCOUNTER 2020-06-01 10:34 | Emergency (ER) | payer MEDICARE ==
[~2020-06-01] VITALS: Ht 180.3 cm; Wt 112.0 kg
[~2020-06-01 10:34] MED LIST changes: +KEFLEX500 MG PO
== END 2020-06-01 13:59 | disposition home or self-care (01) ==
LOC: ER 10:44
DX: S32.010A Wedge compression fracture of first lumbar vertebra, initial encounter for closed fracture (principal); M54.2 Cervicalgia; V44.5XXA Car driver injured in collision with heavy transport vehicle or bus in traffic accident, initial encounter; Y92.488 Other paved roadways as the place of occurrence of the external cause; E11.9 Type 2 diabetes mellitus without complications; E78.5 Hyperlipidemia, unspecified
CPT/HCPCS: 70450; 72125; 72131; 99283

== ENCOUNTER 2020-11-03 07:15 | Inpatient (IN) | payer MEDICARE ==
[~2020-11-03] VITALS: Ht 175.3 cm; Wt 99.8 kg
[2020-11-03 07:59] LABS: BASOPHILS % 0.4 % (0.0-1.0); EOSINOPHILS # (AUTO) 0.3 (0.0-0.4); EOSINOPHILS % 4.1 % (0.0-6.0); HEMATOCRIT 37.6 % (38.2-49.6); HEMOGLOBIN 12.1 g/dL (14.0-18.0); LYMPHOCYTES # (AUTO) 2.5 (1.0-3.2); LYMPHOCYTES % 34.8 % (18.0-39.1); MEAN CORPUSCULAR HEMOGLOBIN 29.2 pg (28-32); MEAN CORPUSCULAR HGB CONC 32.2 g/dL (31-35); MEAN CORPUSCULAR VOLUME 90.6 fL (81-99); MONOCYTES # (AUTO) 0.4 (0.2-0.8); MONOCYTES % 6.3 % (4.4-11.3); NEUTROPHILS # (AUTO) 3.8 (2.1-6.9); NEUTROPHILS % 54.3 % (38.7-80.0); PLATELET COUNT 232 x10e3/uL (140-360); RED BLOOD COUNT 4.15 x10e6/uL (4.3-5.7); RED CELL DISTRIBUTION WIDTH 14.1 % (11.7-14.4)
[2020-11-03 08:31] LABS: ALANINE AMINOTRANSFERASE 7 IU/L (0-55); ALBUMIN 3.5 g/dL (3.5-5.0); ALBUMIN/GLOBULIN RATIO 0.8 (0.8-2.0); ALKALINE PHOSPHATASE 53 IU/L (40-150); ANION GAP 14.3 mmol/L (8-16); BLOOD UREA NITROGEN 21 mg/dL (7-26); BUN/CREATININE RATIO 18 (6-25); CALCIUM 9.1 mg/dL (8.4-10.2); CARBON DIOXIDE 24 mmol/L (22-29); CHLORIDE 105 mmol/L (98-107); CREATININE, SERUM 1.19 mg/dL (0.72-1.25); EST GLOMERULAR FILTRATION RATE > 60 ML/MIN (60-); GLUCOSE 102 mg/dL (74-118); POTASSIUM 4.3 mmol/L (3.5-5.1); SODIUM 139 mmol/L (136-145)
[2020-11-03] MEDS ORDERED: DEXTROSE 50% SYRINGE 50 ML IV PRN (10:00)
[2020-11-03] MEDS ORDERED: ONDANSETRON HCL INJ 2MG/ML 2ML 2 MG/ML VIAL IV PRN (10:00)
[2020-11-03] MEDS ORDERED: COREG12.5 MG PO (11:26)
[2020-11-03] MEDS: INSULIN LISPRO 100 UNIT/1 ML 3ML VIAL SQ SCH ×3 (11:30→21:15)
[2020-11-03] MEDS: TIZANIDINE HCL 4 MG TAB PO SCH ×2 (12:03→21:16)
[2020-11-03 14:21] VITALS: BP 142/82
[2020-11-03] MEDS ORDERED: TIZANIDINE HCL 2 MG PO SCH (15:00)
[2020-11-03 15:31] VITALS: BP 130/79
[2020-11-03 19:46] VITALS: BP 165/70
[2020-11-03 20:00] VITALS: BP 165/70
[2020-11-03] MEDS: SIMVASTATIN 40 MG TAB PO SCH (21:16)
[2020-11-04] VITALS (9 sets, daily range): BP systolic 143–188; BP diastolic 78–94
[2020-11-04 06:35] LABS: BASOPHILS % 0.6 % (0.0-1.0); EOSINOPHILS # (AUTO) 0.3 (0.0-0.4); EOSINOPHILS % 4.4 % (0.0-6.0); HEMATOCRIT 36.9 % (38.2-49.6); HEMOGLOBIN 12.1 g/dL (14.0-18.0); LYMPHOCYTES % 47.3 % (18.0-39.1); MEAN CORPUSCULAR HEMOGLOBIN 29.5 pg (28-32); MEAN CORPUSCULAR HGB CONC 32.8 g/dL (31-35); MONOCYTES # (AUTO) 0.4 (0.2-0.8); MONOCYTES % 6.7 % (4.4-11.3); NEUTROPHILS # (AUTO) 2.6 (2.1-6.9); NEUTROPHILS % 40.7 % (38.7-80.0); PLATELET COUNT 237 x10e3/uL (140-360); RED CELL DISTRIBUTION WIDTH 13.8 % (11.7-14.4)
[2020-11-04 07:07] LABS: ANION GAP 12.8 mmol/L (8-16); BLOOD UREA NITROGEN 16 mg/dL (7-26); BUN/CREATININE RATIO 18 (6-25); CALCIUM 8.9 mg/dL (8.4-10.2); CARBON DIOXIDE 26 mmol/L (22-29); CHLORIDE 103 mmol/L (98-107); EST GLOMERULAR FILTRATION RATE > 60 ML/MIN (60-); GLUCOSE 158 mg/dL (74-118); POTASSIUM 3.8 mmol/L (3.5-5.1); SODIUM 138 mmol/L (136-145)
[2020-11-04] MEDS ORDERED: HYDRALAZINE HCL 25 MG TAB PO PRN (07:30)
[2020-11-04 07:36] LABS: EOSINOPHILS % (MANUAL) 4 % (0-7); LYMPHOCYTES % (MANUAL) 39 % (19-48); MONOCYTES % (MANUAL) 4 % (3.4-9.0); NEUTROPHILS % (MANUAL) 49 % (40-74); PLATELET ESTIMATE ADEQUATE; PLATELET MORPHOLOGY COMMENT NORMAL; RBC MORPHOLOGY COMMENT NORMAL
[2020-11-04] MEDS: AMLODIPINE BESYLATE 10 MG TAB PO SCH (07:51)
[2020-11-04] MEDS ORDERED: AMLODIPINE BESYLATE 5 MG TAB PO SCH (09:00)
[2020-11-04] MEDS: INSULIN LISPRO 100 UNIT/1 ML 3ML VIAL SQ SCH ×3 (09:19→21:00)
[2020-11-04] MEDS ORDERED: MIDAZOLAM HCL 2 MG/2 ML VIAL ONE ×2 (15:18→18:31)
[2020-11-04] MEDS ORDERED: CLINDAMYCIN PHOS 600 MG/ 4 ML VIAL ONE (15:19)
[2020-11-04] MEDS ORDERED: LIDOCAINE 1% W/EPINEPHRINE 20 ML VIAL ONE (15:19)
[2020-11-04] MEDS ORDERED: VANCOMYCIN 1GM/NS 250 ML 500 ML ONE (15:20)
[2020-11-04] MEDS ORDERED: FENTANYL CITRATE/PF 100MCG/2 ML INJ ONE (15:20)
[2020-11-04] MEDS ORDERED: SODIUM CHLORIDE 0.9% 500ML 500 ML ONE (15:21)
[2020-11-04] MEDS ORDERED: SODIUM CHLORIDE 0.9% 1000ML 2,000 ML ONE (15:21)
[2020-11-04] MEDS ORDERED: GENTAMICIN SULFATE 40 MG/ML 2 ML VIAL ONE (15:22)
[2020-11-04] MEDS: SIMVASTATIN 40 MG TAB PO SCH (21:37)
[2020-11-04] MEDS: TRAMADOL HCL 50 MG TAB PO PRN (23:59)
[2020-11-05] VITALS (8 sets, daily range): BP systolic 128–193; BP diastolic 78–100
[2020-11-05] MEDS: INSULIN LISPRO 100 UNIT/1 ML 3ML VIAL SQ SCH ×3 (07:30→16:30)
[2020-11-05] MEDS: AMLODIPINE BESYLATE 10 MG TAB PO SCH (07:31)
[2020-11-05] MEDS: ACETAMINOPHEN 325 MG TAB PO PRN ×2 (07:32→13:40)
[2020-11-05] MEDS: TRAMADOL HCL 50 MG TAB PO PRN ×2 (07:33→13:40)
[2020-11-05] MEDS: TIZANIDINE HCL 4 MG TAB PO PRN ×2 (07:34)
[2020-11-05] MEDS ORDERED: METOPROLOL TARTRATE 25 MG TAB PO SCH (09:00)
[2020-11-05] MEDS ORDERED: HYDROCHLOROTHIAZIDE 25 MG TAB PO SCH (09:15)
[2020-11-05] MEDS ORDERED: LISINOPRIL 10 MG TAB PO ONE (09:45)
[2020-11-05] MEDS ORDERED: ESIDRIX25 MG PO (14:58)
[2020-11-05] MEDS ORDERED: LISINOPRIL 10 MG TAB PO SCH (18:00)
== END 2020-11-05 17:15 | disposition home or self-care (01) | DRG 243 ==
LOC: ER 07:38 → ERHOLD 08:09 → MED/SURG 13:33
PROVIDERS: ADMIT Internal Medicine; ATTEND Internal Medicine
PROC: 0JH606Z Insertion of Pacemaker, Dual Chamber into Chest Subcutaneous Tissue and Fascia, Open Approach (ICD-10-PCS; principal; 2020-11-04)
PROC: 02HK3JZ Insertion of Pacemaker Lead into Right Ventricle, Percutaneous Approach (ICD-10-PCS; 2020-11-04)
PROC: 02H63JZ Insertion of Pacemaker Lead into Right Atrium, Percutaneous Approach (ICD-10-PCS; 2020-11-04)
DX: I49.5 Sick sinus syndrome (principal); I44.2 Atrioventricular block, complete; I10 Essential (primary) hypertension; I25.10 Atherosclerotic heart disease of native coronary artery without angina pectoris; E11.9 Type 2 diabetes mellitus without complications; M19.90 Unspecified osteoarthritis, unspecified site; Z20.822 Contact with and (suspected) exposure to COVID-19
CPT/HCPCS: 33208; 36415; 71045; 80048; 80053; 82948; 83880; 84443; 84484; 85025; 93005; 93306; 96372; 99152; 99153; 99284; J1580; J2250; J3010; J3370; J7030; J7040; J7799; U0002

== ENCOUNTER 2020-11-09 06:47 | Inpatient (IN) | payer MEDICARE ==
[2020-11-09] VITALS (7 sets, daily range): BP systolic 146–169; BP diastolic 74–84
[~2020-11-09] VITALS: Ht 175.3 cm; Wt 98.4 kg
[~2020-11-09 06:47] MED LIST changes: +COREG12.5 MG PO; +ESIDRIX25 MG PO
[2020-11-09 08:17] LABS: BASOPHILS % 0.3 % (0.0-1.0); EOSINOPHILS % 0.2 % (0.0-6.0); HEMATOCRIT 39.6 % (38.2-49.6); LYMPHOCYTES # (AUTO) 2.3 (1.0-3.2); LYMPHOCYTES % 19.4 % (18.0-39.1); MEAN CORPUSCULAR HEMOGLOBIN 29.4 pg (28-32); MEAN CORPUSCULAR HGB CONC 32.8 g/dL (31-35); MEAN CORPUSCULAR VOLUME 89.6 fL (81-99); MONOCYTES # (AUTO) 1.2 (0.2-0.8); MONOCYTES % 10.6 % (4.4-11.3); NEUTROPHILS # (AUTO) 8.1 (2.1-6.9); NEUTROPHILS % 68.9 % (38.7-80.0); PLATELET COUNT 219 x10e3/uL (140-360); RED BLOOD COUNT 4.42 x10e6/uL (4.3-5.7); RED CELL DISTRIBUTION WIDTH 13.7 % (11.7-14.4)
[2020-11-09 08:28] LABS: INR 1.04; PARTIAL THROMBOPLASTIN TIME 37.6 seconds (23.8-35.5); PROTHROMBIN TIME 14.2 seconds (11.9-14.5)
[2020-11-09 08:37] LABS: ALANINE AMINOTRANSFERASE 7 IU/L (0-55); ALBUMIN/GLOBULIN RATIO 0.6 (0.8-2.0); ALKALINE PHOSPHATASE 54 IU/L (40-150); ANION GAP 16.7 mmol/L (8-16); BLOOD UREA NITROGEN 22 mg/dL (7-26); BUN/CREATININE RATIO 17 (6-25); CALCIUM 9.3 mg/dL (8.4-10.2); CARBON DIOXIDE 24 mmol/L (22-29); CHLORIDE 95 mmol/L (98-107); CREATINE KINASE 146 IU/L (30-200); CREATININE, SERUM 1.32 mg/dL (0.72-1.25); EST GLOMERULAR FILTRATION RATE > 60 ML/MIN (60-); GLUCOSE 197 mg/dL (74-118); MAGNESIUM 1.6 MG/DL (1.3-2.1); POTASSIUM 3.7 mmol/L (3.5-5.1); SODIUM 132 mmol/L (136-145)
[2020-11-09 08:57] LABS: THYROID STIMULATING HORMONE 1.404 uIU/mL (0.350-4.940)
[2020-11-09] MEDS ORDERED: CEFTRIAXONE SOD 1 GM VIAL IV SCH (09:30)
[2020-11-09] MEDS: CEFTRIAXONE SOD 1 GM in SODIUM CHLORIDE 0.9% 50ML 50 ML IV SCH ×2 (10:06→20:21)
[2020-11-09] MEDS ORDERED: ONDANSETRON HCL INJ 2MG/ML 2ML 2 MG/ML VIAL IV PRN ×2 (10:15→18:30)
[2020-11-09 10:18] LABS: CLARITY,URINE SL CLOUDY (CLEAR); COLOR,URINE YELLOW (YELLOW)
[2020-11-09 10:19] LABS: BACTERIA,URINE MANY /HPF; EPITHELIAL CELLS,URINE FEW /LPF; KETONES,URINE TRACE (NEGATIVE); LEUKOCYTE ESTERASE ,URINE SMALL (NEGATIVE); NITRITE,URINE NEGATIVE (NEGATIVE); PROTEIN,URINE DIPSTICK 2+ (NEGATIVE); WBC,URINE (MAN) >50 /HPF (0-5)
[2020-11-09] MEDS: SODIUM CHLORIDE 0.9% 1000ML 1,000 ML IV SCH ×2 (12:44→20:21)
[2020-11-09 14:23] LABS: CREATINE KINASE MB 0.5 ng/mL (0-5.0)
[2020-11-09] MEDS ORDERED: DEXTROSE 50% SYRINGE 50 ML IV PRN (18:30)
[2020-11-09 19:31] LABS: CREATINE KINASE 205 IU/L (30-200)
[2020-11-09] MEDS ORDERED: SIMVASTATIN 80 MG TAB PO SCH (21:00)
[2020-11-09] MEDS: INSULIN REGULAR, HUMAN 100 UNIT/1 ML 3ML VIAL SQ SCH (21:54)
[2020-11-10] VITALS (12 sets, daily range): BP systolic 135–174; BP diastolic 75–94
[2020-11-10 05:25] LABS: BASOPHILS % 0.4 % (0.0-1.0); EOSINOPHILS # (AUTO) 0.1 (0.0-0.4); EOSINOPHILS % 1.1 % (0.0-6.0); HEMOGLOBIN 10.7 g/dL (14.0-18.0); LYMPHOCYTES # (AUTO) 2.4 (1.0-3.2); LYMPHOCYTES % 27.1 % (18.0-39.1); MEAN CORPUSCULAR HEMOGLOBIN 29.9 pg (28-32); MEAN CORPUSCULAR HGB CONC 33.4 g/dL (31-35); MEAN CORPUSCULAR VOLUME 89.4 fL (81-99); MONOCYTES % 11.3 % (4.4-11.3); NEUTROPHILS # (AUTO) 5.4 (2.1-6.9); NEUTROPHILS % 59.7 % (38.7-80.0); PLATELET COUNT 225 x10e3/uL (140-360); RED BLOOD COUNT 3.58 x10e6/uL (4.3-5.7); RED CELL DISTRIBUTION WIDTH 13.6 % (11.7-14.4)
[2020-11-10 05:59] LABS: ALANINE AMINOTRANSFERASE 6 IU/L (0-55); ALBUMIN 2.2 g/dL (3.5-5.0); ALBUMIN/GLOBULIN RATIO 0.6 (0.8-2.0); ALKALINE PHOSPHATASE 46 IU/L (40-150); ANION GAP 9.6 mmol/L (8-16); BLOOD UREA NITROGEN 20 mg/dL (7-26); BUN/CREATININE RATIO 28 (6-25); CARBON DIOXIDE 21 mmol/L (22-29); CHLORIDE 109 mmol/L (98-107); CREATININE, SERUM 0.72 mg/dL (0.72-1.25); EST GLOMERULAR FILTRATION RATE > 60 ML/MIN (60-); GLUCOSE 142 mg/dL (74-118); SODIUM 137 mmol/L (136-145)
[2020-11-10 06:02] LABS: CALCIUM 6.8 mg/dL (8.4-10.2); POTASSIUM 2.6 mmol/L (3.5-5.1)
[2020-11-10 06:16] LABS: CREATINE KINASE 158 IU/L (30-200)
[2020-11-10] MEDS ORDERED: POTASSIUM CHLORIDE 20 MEQ TAB CR PO ONE ×2 (06:35→08:15)
[2020-11-10] MEDS ORDERED: CALCIUM GLUCONATE 10% INJ 4.65 MEQ in SODIUM CHLORIDE 0.9% 50ML 50 ML IV ONE (06:45)
[2020-11-10] MEDS: CEFTRIAXONE SOD 1 GM in SODIUM CHLORIDE 0.9% 50ML 50 ML IV SCH ×2 (08:29→20:36)
[2020-11-10] MEDS: HYDROCHLOROTHIAZIDE 25 MG TAB PO SCH (08:29)
[2020-11-10] MEDS: INSULIN REGULAR, HUMAN 100 UNIT/1 ML 3ML VIAL SQ SCH ×4 (08:48→21:00)
[2020-11-10] MEDS ORDERED: CARVEDILOL 12.5 MG TAB PO SCH (09:00)
[2020-11-10] MEDS ORDERED: AMLODIPINE BESYLATE 5 MG TAB PO SCH (09:00)
[2020-11-10] MEDS ORDERED: MAGNESIUM SULFATE 2GM/50ML 50 ML IV ONE (15:00)
[2020-11-10] MEDS: ENOXAPARIN SOD INJ 40 MG/0.4 ML SYR SC SCH (16:41)
[2020-11-10] MEDS: CARVEDILOL 12.5 MG TAB PO SCH (16:47)
[2020-11-10] MEDS: SIMVASTATIN 20 MG TAB PO SCH (20:36)
[2020-11-10] MEDS: ACETAMINOPHEN/CODEINE 300MG - 30MG TAB PO PRN (20:36)
[2020-11-11] VITALS (8 sets, daily range): BP systolic 139–188; BP diastolic 75–105
[2020-11-11 06:13] LABS: ALBUMIN 2.7 g/dL (3.5-5.0); ALBUMIN/GLOBULIN RATIO 0.6 (0.8-2.0); ALKALINE PHOSPHATASE 55 IU/L (40-150); ANION GAP 16.5 mmol/L (8-16); BLOOD UREA NITROGEN 25 mg/dL (7-26); BUN/CREATININE RATIO 26 (6-25); CALCIUM 9.2 mg/dL (8.4-10.2); CARBON DIOXIDE 24 mmol/L (22-29); CHLORIDE 100 mmol/L (98-107); CREATININE, SERUM 0.96 mg/dL (0.72-1.25); EST GLOMERULAR FILTRATION RATE > 60 ML/MIN (60-); GLUCOSE 143 mg/dL (74-118); POTASSIUM 3.5 mmol/L (3.5-5.1); SODIUM 137 mmol/L (136-145)
[2020-11-11 06:14] LABS: ALANINE AMINOTRANSFERASE < 6 IU/L (0-55)
[2020-11-11] MEDS: INSULIN REGULAR, HUMAN 100 UNIT/1 ML 3ML VIAL SQ SCH ×4 (07:30→21:00)
[2020-11-11] MEDS: AMLODIPINE BESYLATE 10 MG TAB PO SCH (12:45)
[2020-11-11] MEDS: HYDROCHLOROTHIAZIDE 25 MG TAB PO SCH (12:45)
[2020-11-11] MEDS: CARVEDILOL 12.5 MG TAB PO SCH ×2 (12:46→17:23)
[2020-11-11] MEDS: CEFTRIAXONE SOD 1 GM in SODIUM CHLORIDE 0.9% 50ML 50 ML IV SCH ×2 (13:02→20:33)
[2020-11-11] MEDS ORDERED: NORVASC10 MG PO (14:39)
[2020-11-11] MEDS ORDERED: CIPRO500 MG PO (15:15)
[2020-11-11] MEDS: TRAMADOL HCL 50 MG TAB PO PRN ×2 (17:22→19:47)
[2020-11-11] MEDS: ENOXAPARIN SOD INJ 40 MG/0.4 ML SYR SC SCH (17:23)
[2020-11-11] MEDS: HYDRALAZINE HCL 20 MG/ML VIAL IV PRN (19:45)
[2020-11-11] MEDS: ACETAMINOPHEN/CODEINE 300MG - 30MG TAB PO PRN (19:46)
[2020-11-11] MEDS: SIMVASTATIN 20 MG TAB PO SCH (20:32)
[2020-11-11] MEDS ORDERED: ONDANSETRON HCL INJ 2MG/ML 2ML 2 MG/ML VIAL IV PRN (20:45)
[2020-11-11] MEDS ORDERED: DOCUSATE SODIUM 100 MG CAP PO SCH (21:00)
[2020-11-12] VITALS (8 sets, daily range): BP systolic 105–175; BP diastolic 60–91
[2020-11-12 04:52] LABS: BASOPHILS % 0.2 % (0.0-1.0); HEMATOCRIT 36.9 % (38.2-49.6); HEMOGLOBIN 12.5 g/dL (14.0-18.0); LYMPHOCYTES % 17.6 % (18.0-39.1); MEAN CORPUSCULAR HGB CONC 33.9 g/dL (31-35); MEAN CORPUSCULAR VOLUME 88.5 fL (81-99); MONOCYTES # (AUTO) 1.5 (0.2-0.8); MONOCYTES % 13.4 % (4.4-11.3); NEUTROPHILS # (AUTO) 7.6 (2.1-6.9); NEUTROPHILS % 68.1 % (38.7-80.0); PLATELET COUNT 289 x10e3/uL (140-360); RED BLOOD COUNT 4.17 x10e6/uL (4.3-5.7); RED CELL DISTRIBUTION WIDTH 13.5 % (11.7-14.4)
[2020-11-12 05:15] LABS: ANION GAP 19.7 mmol/L (8-16); CALCIUM 9.2 mg/dL (8.4-10.2); CREATININE, SERUM 1.38 mg/dL (0.72-1.25); POTASSIUM 3.7 mmol/L (3.5-5.1)
[2020-11-12] MEDS: INSULIN REGULAR, HUMAN 100 UNIT/1 ML 3ML VIAL SQ SCH ×4 (07:30→22:26)
[2020-11-12] MEDS ORDERED: MAGNESIUM HYDROXIDE 30 ML UDC PO PRN (09:45)
[2020-11-12] MEDS: CARVEDILOL 12.5 MG TAB PO SCH ×2 (12:44→17:59)
[2020-11-12] MEDS: DOCUSATE SODIUM 100 MG CAP PO SCH (12:45)
[2020-11-12] MEDS: HYDROCHLOROTHIAZIDE 25 MG TAB PO SCH (12:45)
[2020-11-12] MEDS: AMLODIPINE BESYLATE 10 MG TAB PO SCH (12:45)
[2020-11-12] MEDS: CEFTRIAXONE SOD 1 GM in SODIUM CHLORIDE 0.9% 50ML 50 ML IV SCH ×2 (12:51→21:45)
[2020-11-12] MEDS ORDERED: SODIUM CHLORIDE 0.9% 500ML 500 ML IV ONE (14:00)
[2020-11-12] MEDS: ENOXAPARIN SOD INJ 40 MG/0.4 ML SYR SC SCH (17:59)
[2020-11-12] MEDS ORDERED: SODIUM CHLORIDE 0.9% 500ML 500 ML ONE (18:10)
[2020-11-12] MEDS: SIMVASTATIN 20 MG TAB PO SCH (21:00)
[2020-11-12] MEDS: ACETAMINOPHEN/CODEINE 300MG - 30MG TAB PO PRN (22:05)
[2020-11-13] VITALS (7 sets, daily range): BP systolic 124–156; BP diastolic 68–83
[2020-11-13 04:53] LABS: BASOPHILS % 0.2 % (0.0-1.0); EOSINOPHILS % 0.1 % (0.0-6.0); HEMOGLOBIN 11.5 g/dL (14.0-18.0); LYMPHOCYTES # (AUTO) 1.8 (1.0-3.2); LYMPHOCYTES % 17.4 % (18.0-39.1); MEAN CORPUSCULAR HEMOGLOBIN 29.2 pg (28-32); MEAN CORPUSCULAR HGB CONC 32.9 g/dL (31-35); MEAN CORPUSCULAR VOLUME 88.8 fL (81-99); MONOCYTES # (AUTO) 1.2 (0.2-0.8); MONOCYTES % 11.4 % (4.4-11.3); NEUTROPHILS # (AUTO) 7.4 (2.1-6.9); NEUTROPHILS % 70.5 % (38.7-80.0); PLATELET COUNT 268 x10e3/uL (140-360); RED BLOOD COUNT 3.94 x10e6/uL (4.3-5.7); RED CELL DISTRIBUTION WIDTH 13.6 % (11.7-14.4)
[2020-11-13 05:09] LABS: ANION GAP 15.4 mmol/L (8-16); CALCIUM 8.9 mg/dL (8.4-10.2); CREATININE, SERUM 1.48 mg/dL (0.72-1.25); POTASSIUM 3.4 mmol/L (3.5-5.1)
[2020-11-13] MEDS: INSULIN REGULAR, HUMAN 100 UNIT/1 ML 3ML VIAL SQ SCH ×4 (07:30→21:22)
[2020-11-13] MEDS: CARVEDILOL 12.5 MG TAB PO SCH ×2 (08:38→16:00)
[2020-11-13] MEDS: DOCUSATE SODIUM 100 MG CAP PO SCH (08:39)
[2020-11-13] MEDS: AMLODIPINE BESYLATE 10 MG TAB PO SCH (08:39)
[2020-11-13] MEDS: CEFTRIAXONE SOD 1 GM in SODIUM CHLORIDE 0.9% 50ML 50 ML IV SCH ×2 (08:41→21:22)
[2020-11-13] MEDS: ACETAMINOPHEN/CODEINE 300MG - 30MG TAB PO PRN (14:14)
[2020-11-13] MEDS: SODIUM CHLORIDE 0.9% 1000ML 1,000 ML IV SCH (16:00)
[2020-11-13] MEDS: ENOXAPARIN SOD INJ 40 MG/0.4 ML SYR SC SCH (16:00)
[2020-11-13] MEDS ORDERED: DIATRIZOATE MEGL/DIATRIZOA SOD 30 ML BTL PO ONE (17:11)
[2020-11-13] MEDS ORDERED: POTASSIUM BICARBONATE/CIT AC 20 MEQ TABLET.EFF PO ONE (21:00)
[2020-11-13] MEDS: SIMVASTATIN 20 MG TAB PO SCH (21:22)
[2020-11-13] MEDS ORDERED: POTASSIUM CHLORIDE 10MEQ EA PO ONE (22:00)
[2020-11-14] VITALS (7 sets, daily range): BP systolic 133–166; BP diastolic 72–88
[2020-11-14 06:09] LABS: ANION GAP 14.2 mmol/L (8-16); BLOOD UREA NITROGEN 38 mg/dL (7-26); BUN/CREATININE RATIO 43 (6-25); CALCIUM 7.7 mg/dL (8.4-10.2); CARBON DIOXIDE 21 mmol/L (22-29); CHLORIDE 101 mmol/L (98-107); CREATININE, SERUM 0.88 mg/dL (0.72-1.25); EST GLOMERULAR FILTRATION RATE > 60 ML/MIN (60-); GLUCOSE 204 mg/dL (74-118); POTASSIUM 3.2 mmol/L (3.5-5.1); SODIUM 133 mmol/L (136-145)
[2020-11-14] MEDS: SODIUM CHLORIDE 0.9% 1000ML 1,000 ML IV SCH ×2 (06:30→19:21)
[2020-11-14] MEDS: INSULIN REGULAR, HUMAN 100 UNIT/1 ML 3ML VIAL SQ SCH ×4 (07:30→20:57)
[2020-11-14] MEDS: CARVEDILOL 12.5 MG TAB PO SCH ×2 (09:02→17:08)
[2020-11-14] MEDS: DOCUSATE SODIUM 100 MG CAP PO SCH (09:02)
[2020-11-14] MEDS: AMLODIPINE BESYLATE 10 MG TAB PO SCH (09:03)
[2020-11-14] MEDS: CEFTRIAXONE SOD 1 GM in SODIUM CHLORIDE 0.9% 50ML 50 ML IV SCH ×2 (09:03→20:57)
[2020-11-14] MEDS ORDERED: POTASSIUM CHLORIDE 10MEQ EA PO NR (14:15)
[2020-11-14] MEDS: ENOXAPARIN SOD INJ 40 MG/0.4 ML SYR SC SCH (17:08)
[2020-11-14] MEDS: SIMVASTATIN 20 MG TAB PO SCH (20:57)
[2020-11-14] MEDS: HYDRALAZINE HCL 20 MG/ML VIAL IV PRN (23:52)
[2020-11-15] VITALS (8 sets, daily range): BP systolic 140–172; BP diastolic 75–92
[2020-11-15] MEDS: ACETAMINOPHEN/CODEINE 300MG - 30MG TAB PO PRN (01:12)
[2020-11-15] MEDS: INSULIN REGULAR, HUMAN 100 UNIT/1 ML 3ML VIAL SQ SCH ×4 (07:30→21:00)
[2020-11-15] MEDS: CARVEDILOL 12.5 MG TAB PO SCH ×2 (09:00→17:49)
[2020-11-15] MEDS: AMLODIPINE BESYLATE 10 MG TAB PO SCH (09:00)
[2020-11-15] MEDS: DOCUSATE SODIUM 100 MG CAP PO SCH (09:00)
[2020-11-15] MEDS: CEFTRIAXONE SOD 1 GM in SODIUM CHLORIDE 0.9% 50ML 50 ML IV SCH ×2 (09:45→22:33)
[2020-11-15] MEDS ORDERED: FUROSEMIDE INJ 10 MG/ML 4 ML VIAL IV NR (14:30)
[2020-11-15] MEDS ORDERED: IOPAMIDOL 370 MG/ML 200 ML INFUS..BTL INJ ONE (14:41)
[2020-11-15] MEDS ORDERED: SODIUM CHLORIDE 0.9% 50ML 50 ML ONE (14:41)
[2020-11-15] MEDS: ENOXAPARIN SOD INJ 40 MG/0.4 ML SYR SC SCH (17:49)
[2020-11-15] MEDS: SIMVASTATIN 20 MG TAB PO SCH (21:00)
[2020-11-16] VITALS (8 sets, daily range): BP systolic 138–174; BP diastolic 78–94
[2020-11-16 04:43] LABS: BASOPHILS % 0.5 % (0.0-1.0); EOSINOPHILS # (AUTO) 0.1 (0.0-0.4); EOSINOPHILS % 1.6 % (0.0-6.0); HEMATOCRIT 34.2 % (38.2-49.6); HEMOGLOBIN 10.9 g/dL (14.0-18.0); LYMPHOCYTES # (AUTO) 2.2 (1.0-3.2); LYMPHOCYTES % 25.2 % (18.0-39.1); MEAN CORPUSCULAR HEMOGLOBIN 28.8 pg (28-32); MEAN CORPUSCULAR HGB CONC 31.9 g/dL (31-35); MEAN CORPUSCULAR VOLUME 90.5 fL (81-99); MONOCYTES # (AUTO) 0.9 (0.2-0.8); MONOCYTES % 10.7 % (4.4-11.3); NEUTROPHILS # (AUTO) 5.3 (2.1-6.9); NEUTROPHILS % 61.4 % (38.7-80.0); PLATELET COUNT 325 x10e3/uL (140-360); RED BLOOD COUNT 3.78 x10e6/uL (4.3-5.7); RED CELL DISTRIBUTION WIDTH 13.4 % (11.7-14.4)
[2020-11-16 05:13] LABS: ANION GAP 14.1 mmol/L (8-16); BLOOD UREA NITROGEN 24 mg/dL (7-26); BUN/CREATININE RATIO 29 (6-25); CALCIUM 8.7 mg/dL (8.4-10.2); CARBON DIOXIDE 22 mmol/L (22-29); CHLORIDE 101 mmol/L (98-107); CREATININE, SERUM 0.84 mg/dL (0.72-1.25); EST GLOMERULAR FILTRATION RATE > 60 ML/MIN (60-); GLUCOSE 144 mg/dL (74-118); POTASSIUM 3.1 mmol/L (3.5-5.1); SODIUM 134 mmol/L (136-145)
[2020-11-16] MEDS: INSULIN REGULAR, HUMAN 100 UNIT/1 ML 3ML VIAL SQ SCH ×4 (07:30→20:57)
[2020-11-16] MEDS: RIVASTIGMINE PATCH 4.6MG/24 HOURS PATCH TD SCH (09:00)
[2020-11-16] MEDS: CARVEDILOL 12.5 MG TAB PO SCH ×2 (09:00→16:16)
[2020-11-16] MEDS: DOCUSATE SODIUM 100 MG CAP PO SCH (09:00)
[2020-11-16] MEDS: CEFTRIAXONE SOD 1 GM in SODIUM CHLORIDE 0.9% 50ML 50 ML IV SCH ×2 (09:45→21:45)
[2020-11-16] MEDS: AMLODIPINE BESYLATE 10 MG TAB PO SCH (10:41)
[2020-11-16] MEDS ORDERED: POTASSIUM CHLORIDE 20 MEQ TAB CR PO ONE (12:56)
[2020-11-16] MEDS: HYDRALAZINE HCL 25 MG TAB PO SCH ×2 (15:14→20:52)
[2020-11-16] MEDS: ENOXAPARIN SOD INJ 40 MG/0.4 ML SYR SC SCH (16:16)
[2020-11-16] MEDS: SIMVASTATIN 20 MG TAB PO SCH (20:52)
[2020-11-17] VITALS: BP 145/77
[2020-11-17 04:00] VITALS: BP 152/77
[2020-11-17 04:58] LABS: ANION GAP 15.4 mmol/L (8-16); BLOOD UREA NITROGEN 20 mg/dL (7-26); BUN/CREATININE RATIO 25 (6-25); CALCIUM 8.6 mg/dL (8.4-10.2); CARBON DIOXIDE 22 mmol/L (22-29); CHLORIDE 104 mmol/L (98-107); CREATININE, SERUM 0.81 mg/dL (0.72-1.25); EST GLOMERULAR FILTRATION RATE > 60 ML/MIN (60-); GLUCOSE 107 mg/dL (74-118); POTASSIUM 3.4 mmol/L (3.5-5.1); SODIUM 138 mmol/L (136-145)
[2020-11-17] MEDS: INSULIN REGULAR, HUMAN 100 UNIT/1 ML 3ML VIAL SQ SCH ×2 (07:30→12:30)
[2020-11-17 07:58] VITALS: BP 145/75
[2020-11-17 09:09] VITALS: BP 145/75
[2020-11-17] MEDS: HYDRALAZINE HCL 25 MG TAB PO SCH ×2 (10:58→16:50)
[2020-11-17] MEDS: DOCUSATE SODIUM 100 MG CAP PO SCH (10:58)
[2020-11-17] MEDS: CARVEDILOL 12.5 MG TAB PO SCH ×2 (10:59→16:50)
[2020-11-17] MEDS: AMLODIPINE BESYLATE 10 MG TAB PO SCH (10:59)
[2020-11-17] MEDS: RIVASTIGMINE PATCH 4.6MG/24 HOURS PATCH TD SCH (11:02)
[2020-11-17 11:03] VITALS: BP 176/81
[2020-11-17] MEDS: CEFTRIAXONE SOD 1 GM in SODIUM CHLORIDE 0.9% 50ML 50 ML IV SCH (11:06)
[2020-11-17] MEDS ORDERED: HYDRALAZINE HCL25 MG PO (14:06)
[2020-11-17 15:14] VITALS: BP 131/68
== END 2020-11-17 18:54 | DRG 689 ==
LOC: ER 07:08 → ERHOLD 10:19 → MED/SURG2 17:00
PROVIDERS: ADMIT Internal Medicine; ATTEND Internal Medicine
DX: N39.0 Urinary tract infection, site not specified (principal); G92 Toxic encephalopathy; N17.9 Acute kidney failure, unspecified; E87.1 Hypo-osmolality and hyponatremia; E78.00 Pure hypercholesterolemia, unspecified; I25.10 Atherosclerotic heart disease of native coronary artery without angina pectoris; Z95.0 Presence of cardiac pacemaker; N40.0 Benign prostatic hyperplasia without lower urinary tract symptoms; E87.6 Hypokalemia; B96.20 Unspecified Escherichia coli [E. coli] as the cause of diseases classified elsewhere; E83.51 Hypocalcemia; Z20.822 Contact with and (suspected) exposure to COVID-19
CPT/HCPCS: 36415; 70450; 71045; 71260; 74176; 80048; 80053; 81001; 82140; 82550; 82553; 82948; 83735; 83874; 83880; 84146; 84443; 84484; 85025; 85610; 85730; 87086; 87186; 93005; 93971; 95812; 96361; 97139; 99251; 99284; J0360; J0610; J0696; J1650; J1817; J2405; J3475; J7030; J7040; Q9967; U0002